=== PATIENT | male | born 1995 | race Caucasian/White ===

== ENCOUNTER 2018-01-22 17:37 | Inpatient (IN) ==
--- NOTE | 2018-01-22 17:46 | DR.ABDMALE ---
HPI Time seen Time Seen by Provider: 01/22/18 17:43 Complaint Chief Complaint Doctors Comments: Patient presents with complaint of hurting all. He denies trauma. He was seen in [place] on last night but nothing was done for him. The person accompanying him states that he has diabetes. PE Vital Signs Vital Signs: Temp Pulse Pulse Resp BP BP Pulse Ox 01/23/18 00:04 98.0 F 84 12 135/75 01/22/18 23:00 91 H 11 L 141/84 01/22/18 22:46 134/86 01/22/18 21:40 88 16 136/80 100 01/22/18 17:43 98.9 F 92 H 16 155/96 100 General Limitations: No Limitations General Appearance: Alert and In No Apparent Distress Head Head Exam: Normal Inspection and Atraumatic Eyes Eye exam: Normal Appearance, PERRL and EOMI ENT ENT Exam: Normal Exam and Normal Oropharynx Neck Neck Exam: Normal Inspection and Full ROM Chest Chest Inspection: Normal Inspection Respiratory Respiratory Exam: Normal Lung Sounds Bilat Respiratory Exam: Bilateral: Clear to Auscultation Cardiovascular Cardiovascular Exam: Regular Rate and Normal Rhythm Abdominal Exam Abdominal Exam: Normal Inspection, Normal Bowel Sounds and Soft Abdominal Tenderness: Epigastrium and Mild Back Back Exam: Normal Inspection and Full ROM Extremeties Extremities Exam: Normal Inspection Exam: Male: Deferred Neurologic Neurological Exam: Alert, Oriented X3 and CN II-XII Intact Psychiatric Psychiatric Exam: Normal Affect, Normal Mood and Depressed Skin Skin Exam: Warm and Dry COURSE Consultation Called: 20:34 Call Returned: 20:47 Consultation Comments: Dr. Ordonez agreed to admit for further evaluation and treatment ROR Labs Reviewed Laboratory Results Reviewed?: Yes Result Diagrams: 01/22/18 18:45 01/22/18 23:26 Laboratory: WBC 18.0 X10^3/uL (3.6-10.0) H 01/22/18 18:45 RBC 6.17 X10^6/uL (4.7-6.0) H 01/22/18 18:45 Hgb 17.1 g/dL (13.5-18.0) 01/22/18 18:45 Hct 52.8 % (42.0-54.0) 01/22/18 18:45 MCV 85.6 fL (80.0-100.0) 01/22/18 18:45 MCH 27.7 pg (27.0-34.0) 01/22/18 18:45 MCHC 32.4 g/dL (33.0-35.0) L 01/22/18 18:45 RDW 14.7 % (11.6-16.5) 01/22/18 18:45 Plt Count 285 X10^3/uL (150.0-450.0) 01/22/18 18:45 MPV 9.9 fL (7.4-11.0) 01/22/18 18:45 Neut % (Auto) 83.6 % (42.0-75.0) H 01/22/18 18:45 Lymph % (Auto) 11.2 % (21.0-51.0) L 01/22/18 18:45 [place] % (Auto) 4.8 % (0.0-13.0) 01/22/18 18:45 Eos % (Auto) 0.1 % (0.9-2.9) L 01/22/18 18:45 Baso % (Auto) 0.3 % (0.2-1.0) 01/22/18 18:45 Neut # (Auto) 15.1 x10^3/uL (2.2-4.8) H 01/22/18 18:45 Lymph # (Auto) 2.0 X10^3/uL (1.3-2.9) 01/22/18 18:45 [place] # (Auto) 0.9 x10^3/uL (0.3-0.8) H 01/22/18 18:45 Eos # (Auto) 0.0 x10^3/uL (0.0-0.2) 01/22/18 18:45 Baso # (Auto) 0.1 X10^3/uL (0.0-0.1) 01/22/18 18:45 Absolute Nucleated RBC 0.1 /100WBC 01/22/18 18:45 Absolute Retic 0.0800 10^6/uL 01/22/18 18:45 Percent Retic 1.30 % (0.8-2.2) 01/22/18 18:45 Sample Site Rr 01/22/18 20:05 ABG pH 7.150 (7.35-7.45) L* 01/22/18 20:05 ABG pCO2 12.0 mmHg (35.0-45.0) L* 01/22/18 20:05 ABG pO2 149.0 mmHg (80.0-100.0) H 01/22/18 20:05 ABG HCO3 4.2 mmol/L (22-26) L* 01/22/18 20:05 ABG O2 Saturation 99.0 % (90-100) 01/22/18 20:05 ABG Base Excess -22.3 mmol/L (-2.0-2.0) L 01/22/18 20:05 Murphy Test Pos 01/22/18 20:05 A-a Gradient -14.0 mmHg 01/22/18 20:05 FiO2 21.0 01/22/18 20:05 Blood Gas Comments Pt chester well js 01/22/18 20:05 Sodium 133 mmol/L (136-145) L 01/22/18 23:26 Corrected Sodium 138 mmol/L (136-145) 01/22/18 23:26 Potassium 4.1 mmol/L (3.5-5.1) 01/22/18 23:26 Chloride 101 mmol/L (98-107) 01/22/18 23:26 Carbon Dioxide 5.4 mmol/L (21-32) L* 01/22/18 23:26 BUN 20 mg/dL (7-18) H 01/22/18 23:26 Creatinine 1.26 mg/dL (0.70-1.30) 01/22/18 23:26 Est GFR (MDRD) Af Amer > 60 (>60) 01/22/18 23:26 Est GFR (MDRD) Non-Af > 60 (>60) 01/22/18 23:26 Glucose 319 mg/dL (65-99) H 01/22/18 23:26 POC Glucose (mg/dL) 247 mg/dL (65-99) H 01/23/18 01:06 Calcium 7.0 mg/dL (8.5-10.1) L 01/22/18 23:26 Corrected Calcium TNP 01/22/18 18:45 Total Bilirubin 0.50 mg/dL (0.2-1.0) 01/22/18 18:45 AST 78 Units/L (15-37) H 01/22/18 18:45 ALT 146 Units/L (12-78) H 01/22/18 18:45 Alkaline Phosphatase 78 Units/L (46-116) 01/22/18 18:45 C-Reactive Protein 3.80 mg/L (0-3.0) H 01/22/18 18:45 Total Protein 9.0 g/dL (6.4-8.2) H 01/22/18 18:45 Albumin 3.4 g/dL (3.4-5.0) 01/22/18 18:45 Globulin 5.6 g/dL (2.5-4.5) H 01/22/18 18:45 Albumin/Globulin Ratio 0.6 Ratio (1.1-2.1) L 01/22/18 18:45 Specimen Type Random urine 01/22/18 18:36 Urine Color Yellow (YELLOW) 01/22/18 18:36 Urine Appearance Slightly hazy (CLEAR) 01/22/18 18:36 Urine pH 5.0 (5.0 - 8.0) 01/22/18 18:36 Ur Specific [place] 1.025 (1.000-1.030) 01/22/18 18:36 Urine Protein 2+ (NEGATIVE) 01/22/18 18:36 Urine Glucose (UA) 4+ (NEGATIVE) 01/22/18 18:36 Urine Ketones 4+ (NEGATIVE) 01/22/18 18:36 Urine Occult Blood 2+ (NEGATIVE) 01/22/18 18:36 Urine Nitrite Negative (NEGATIVE) 01/22/18 18:36 Urine Bilirubin Negative (NEGATIVE) 01/22/18 18:36 Urine Urobilinogen Normal (NORMAL) 01/22/18 18:36 Ur Leukocyte Esterase Negative (NEGATIVE) 01/22/18 18:36 Urine RBC 0-2 /HPF (NONE SEEN) 01/22/18 18:36 Urine WBC 0-2 /HPF (NONE SEEN) 01/22/18 18:36 Ur Squamous Epith Cells Rare /HPF (NEGATIVE) 01/22/18 18:36 Urine Bacteria Trace /HPF (NEGATIVE) 01/22/18 18:36 Urine Mucus Few /HPF (NEGATIVE) 01/22/18 18:36 Ur Culture Indicated? No/not indicated 01/22/18 18:36 Urine Opiates Screen Negative (NEG=<300) 01/22/18 18:36 Urine Methadone Screen Negative (NEG=<300) 01/22/18 18:36 Ur Barbiturates Screen Negative (NEG=<200) 01/22/18 18:36 Ur Phencyclidine Scrn Negative (NEG=<25) 01/22/18 18:36 Ur Amphetamines Screen Negative (NEG=<1000) 01/22/18 18:36 U Benzodiazepines Scrn Negative (NEG=<200) 01/22/18 18:36 Urine Cocaine Screen Negative (NEG=<300) 01/22/18 18:36 U Marijuana (THC) Screen Negative (NEG=<50) 01/22/18 18:36 Acetone, Semi-Quant Small (NEGATIVE) H 01/22/18 18:45 Diagnosis Discharge Problem: Metabolic acidosis Diabetes mellitus Qualifiers: Diabetes mellitus type: type 2 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
[2018-01-22] MEDS ORDERED: NS 1000 ML 1,000 ML ONE ×2 (18:03→20:39)
[2018-01-22] MEDS ORDERED: NS 1000 ML 1,000 ML IV ONE ×2 (18:09→19:57)
--- NOTE | 2018-01-22 18:35 | RAD ---
History: Pain Exam: Acute abdominal series Comparison: None Findings: AP chest was obtained which shows no acute cardiopulmonary abnormality. Supine and upright views of the abdomen were obtained which shows a nonspecific gas pattern. No renal stones are seen. There is no free air. The bones are intact. IMPRESSION: No acute cardiopulmonary abnormality. Non-specific gas pattern. Reported By:
[2018-01-22 18:47] LABS: BILIRUBIN,URINE NEGATIVE (NEGATIVE); BLOOD/HEMOGLOBIN,URINE 2+ (NEGATIVE); GLUCOSE, URINE 4+ (NEGATIVE); KETONES,URINE 4+ (NEGATIVE); LEUKOCYTE ESTERASE ,URINE NEGATIVE (NEGATIVE); NITRITES,URINE NEGATIVE (NEGATIVE); PROTEIN,URINE 2+ (NEGATIVE); UROBILINOGEN,URINE NORMAL (NORMAL)
[2018-01-22 18:51] LABS: BASOPHILS # (AUTO) 0.1 X10^3/uL (0.0-0.1); BASOPHILS % (AUTO) 0.3 % (0.2-1.0); EOSINOPHILS % (AUTO) 0.1 % (0.9-2.9); HEMATOCRIT 52.8 % (42.0-54.0); HEMOGLOBIN 17.1 g/dL (13.5-18.0); LYMPHOCYTES % (AUTO) 11.2 % (21.0-51.0); MEAN CORPUSCULAR HEMOGLOBIN 27.7 pg (27.0-34.0); MEAN CORPUSCULAR HGB CONC 32.4 g/dL (33.0-35.0); MEAN CORPUSCULAR VOLUME 85.6 fL (80.0-100.0); MEAN PLATELET VOLUME 9.9 fL (7.4-11.0); MONOCYTES # (AUTO) 0.9 x10^3/uL (0.3-0.8); MONOCYTES % (AUTO) 4.8 % (0.0-13.0); NEUTROPHILS # (AUTO) 15.1 x10^3/uL (2.2-4.8); NEUTROPHILS % (AUTO) 83.6 % (42.0-75.0); PLATELET COUNT 285 X10^3/uL (150.0-450.0); RED BLOOD COUNT 6.17 X10^6/uL (4.7-6.0); RED CELL DISTRIBUTION WIDTH 14.7 % (11.6-16.5)
[2018-01-22 18:52] LABS: APPEARANCE,URINE SLIGHTLY HAZY (CLEAR); COLOR,URINE YELLOW (YELLOW)
[2018-01-22 19:01] LABS: ALANINE AMINOTRANSFERASE 146 Units/L (12-78); ALBUMIN 3.4 g/dL (3.4-5.0); ALKALINE PHOSPHATASE 78 Units/L (46-116); ASPARTATE AMINO TRANSFERASE 78 Units/L (15-37); BLOOD UREA NITROGEN 22 mg/dL (7-18); eGFR NON BLACK RACES > 60 (>60)
[2018-01-22 19:02] LABS: RBC,URINE 0-2 /HPF (NONE SEEN); SQUAMOUS EPITHELIAL CELL,UR RARE /HPF (NEGATIVE)
[2018-01-22 19:03] LABS: BACTERIA,URINE TRACE /HPF (NEGATIVE); MUCUS,URINE FEW /HPF (NEGATIVE)
[2018-01-22 19:23] LABS: CALCIUM 7.7 mg/dL (8.5-10.1); CHLORIDE 98 mmol/L (98-107); COR NA(FOR HYPERGLY) 137 mmol/L (136-145); CREATININE 1.44 mg/dL (0.70-1.30); SODIUM 130 mmol/L (136-145)
[2018-01-22 19:29] LABS: CARBON DIOXIDE 5.5 mmol/L (21-32)
[2018-01-22] MEDS ORDERED: SODIUM BICARBONATE 8.4% INJ ADULT IVP ONE (20:22)
[2018-01-22 20:24] LABS: ABG BASE EXCESS -22.3 mmol/L (-2.0-2.0)
[2018-01-22 20:25] LABS: ABG HCO3 4.2 mmol/L (22-26)
[2018-01-22 20:26] LABS: ABG ALLEN TEST POS
[2018-01-22] MEDS ORDERED: SODIUM BICARBONATE 8.4% INJ ADULT ONE (20:39)
[2018-01-22] MEDS: NS 1000 ML 1,000 ML IV SCH (22:51)
[2018-01-22] MEDS ORDERED: NS 100 ML IV 100 ML IV ONE (22:53)
[2018-01-22] MEDS ORDERED: HumuLIN R ONE (22:56)
[2018-01-23] LABS: BLOOD UREA NITROGEN 20 mg/dL (7-18); CHLORIDE 101 mmol/L (98-107); COR NA(FOR HYPERGLY) 138 mmol/L (136-145); CREATININE 1.26 mg/dL (0.70-1.30); SODIUM 133 mmol/L (136-145); eGFR NON BLACK RACES > 60 (>60)
[2018-01-23 00:02] LABS: CARBON DIOXIDE 5.4 mmol/L (21-32)
[2018-01-23 03:30] LABS: BASOPHILS # (AUTO) 0.1 X10^3/uL (0.0-0.1); BASOPHILS % (AUTO) 0.5 % (0.2-1.0); HEMATOCRIT 43.8 % (42.0-54.0); HEMOGLOBIN 14.5 g/dL (13.5-18.0); LYMPHOCYTES # (AUTO) 2.9 X10^3/uL (1.3-2.9); LYMPHOCYTES % (AUTO) 16.4 % (21.0-51.0); MEAN CORPUSCULAR HEMOGLOBIN 27.5 pg (27.0-34.0); MEAN CORPUSCULAR HGB CONC 33.2 g/dL (33.0-35.0); MEAN CORPUSCULAR VOLUME 82.8 fL (80.0-100.0); MEAN PLATELET VOLUME 9.7 fL (7.4-11.0); MONOCYTES % (AUTO) 5.6 % (0.0-13.0); NEUTROPHILS # (AUTO) 13.6 x10^3/uL (2.2-4.8); NEUTROPHILS % (AUTO) 77.5 % (42.0-75.0); PLATELET COUNT 267 X10^3/uL (150.0-450.0); RED BLOOD COUNT 5.28 X10^6/uL (4.7-6.0); RED CELL DISTRIBUTION WIDTH 14.3 % (11.6-16.5); WHITE BLOOD COUNT 17.5 X10^3/uL (3.6-10.0)
[2018-01-23 03:46] LABS: BLOOD UREA NITROGEN 17 mg/dL (7-18); CHLORIDE 102 mmol/L (98-107); CKMB % 3.4 % (<4); COR NA(FOR HYPERGLY) 135 mmol/L (136-145); CREATINE KINASE 44 Units/L (39-308); CREATINE KINASE MB 1.5 ng/mL (0-4.0); SODIUM 132 mmol/L (136-145); TROPONIN I < 0.02 ng/mL (0-1.5); eGFR NON BLACK RACES > 60 (>60)
[2018-01-23 04:05] LABS: CARBON DIOXIDE 8.2 mmol/L (21-32)
[2018-01-23] MEDS: NS 1000 ML 1,000 ML IV SCH ×3 (05:42→21:35)
[2018-01-23 05:50] LABS: ABG BASE EXCESS -17.2 mmol/L (-2.0-2.0)
[2018-01-23 05:55] LABS: ABG HCO3 8.6 mmol/L (22-26)
[2018-01-23 05:57] LABS: ABG ALLEN TEST POS
[2018-01-23 07:42] LABS: BLOOD UREA NITROGEN 15 mg/dL (7-18); CALCIUM 7.1 mg/dL (8.5-10.1); CHLORIDE 101 mmol/L (98-107); COR NA(FOR HYPERGLY) 134 mmol/L (136-145); CREATININE 1.12 mg/dL (0.70-1.30); SODIUM 131 mmol/L (136-145); eGFR NON BLACK RACES > 60 (>60)
[2018-01-23 07:45] LABS: CARBON DIOXIDE 12.5 mmol/L (21-32)
[2018-01-23 12:41] LABS: ABG BASE EXCESS -10.2 mmol/L (-2.0-2.0)
[2018-01-23 12:42] LABS: ABG ALLEN TEST POS; ABG HCO3 14.2 mmol/L (22-26)
--- NOTE | 2018-01-23 13:39 | DR.H&P ---
H&P - History & Physical for Day of: H&P Date: 01/22/18 - Chief Complaint Chief Complaint: ABDOMINAL PAIN - History of Present Illness History of Present Illness: 21 BM ER ADMISSION WITH ABDOMINAL PAIN AND DKA. PT STATES HE HAS BEEN SICK FOR SEVERAL WEEKS, PT IS VERY POOR HISTORIAN, NON COMPLIANT. PT STATES HE "JUST FOUND OUT" HE WAS A DIABETIC. PT REPORTS HE WAS IN [place] ER AND "THEY DIDNT DO ANYTHING". PT WBC 18, ABG PH 7.150 HCO3 4.2. PT ADMITTED TO ICU ON INSULIN DRIP. - Past Medical History Past Medical History: Diabetes - Past Surgical History Surgical History: No History - Social History Does patient currently use any type of tobacco product: Yes Have you used tobacco products in the last 12 months: Yes Type of Tobacco Use: Cigarettes How many years tobacco product used: 5 Does any household member use tobacco: Yes Alcohol Use: None Drug Use: None - Medications Home Medications: No Known Drug Allergies Allergy (Verified 01/22/18 18:02) - Review of Systems Constitutional: Weakness Eyes: No Symptoms Reported ENT: No Symptoms Reported Respiratory: No Symptoms Reported Cardiovascular: No Symptoms Reported Gastrointestinal: Nausea, Vomiting, Abdominal Pain Musculoskeletal: No Symptoms Reported Skin: No Symptoms Reported Neurological: Weakness - Physical Exam Vital Signs: Temperature 98.9 F Pulse Rate [Right Brachial] 89 Pulse Rate 92 Respiratory Rate 15 Blood Pressure [Left Arm] 121/55 Blood Pressure 155/96 O2 Sat by Pulse Oximetry 100 Oriented: Normal Eyes: Normal Ear: Normal Nose: Normal Throat: Normal Respiratory: RLL Diminished, LLL Diminished Cardiovascular: Normal : Normal Auscultation: Bowel Sounds: Increased Tenderness: LUQ, Epigastric Skin: Normal Musculoskeletal: Normal Mood Description: Anxious Affect: Anxious Speech Pattern: Clear, Appropriate - Assessment/Plan (1) Abdominal pain Status: Acute Plan: ADMIT, ICU INSULIN DRIP. IV HYDRATION, STRICT I & OS. NPO, PAIN AND NAUSEA CONTROL. ABD SERIES ON ADMISSION. PPI THERAPY, BS PER INSULIN PROTOCOL, SUPPLEMENTAL O2. REPEAT AM ABG. (2) Diabetes mellitus Qualifiers: Diabetes mellitus type: type 1 Diabetes mellitus complication status: with hyperglycemia Qualified Code(s): E10.65 - Type 1 diabetes mellitus with hyperglycemia Status: Acute (3) Metabolic acidosis Status: Acute - Allergies Allergies/Adverse Reactions: Allergies Allergy/AdvReac Type Severity Reaction Status Date / Time No Known Drug Allergies Allergy Verified 01/22/18 18:02
[2018-01-23] MEDS ORDERED: ZOFRAN INJ 4 MG VIAL IVP ONE (13:43)
[2018-01-23] MEDS: LEVAQUIN PREMIX IV 500 MG 500 MG/100 ML BAG IV SCH (14:03)
[2018-01-23] MEDS: PROTONIX INJ 40 MG VIAL IVP SCH ×2 (14:05→21:35)
[2018-01-23] MEDS ORDERED: XANAX PO ONE (16:04)
[2018-01-24] MEDS: NS 1000 ML 1,000 ML IV SCH ×3 (05:43→22:29)
[2018-01-24 05:52] LABS: ABG BASE EXCESS -4.8 mmol/L (-2.0-2.0); ABG HCO3 19.5 mmol/L (22-26)
[2018-01-24 06:37] LABS: BASOPHILS % (AUTO) 0.1 % (0.2-1.0); EOSINOPHILS # (AUTO) 0.1 x10^3/uL (0.0-0.2); EOSINOPHILS % (AUTO) 0.9 % (0.9-2.9); HEMATOCRIT 35.7 % (42.0-54.0); HEMOGLOBIN 12.2 g/dL (13.5-18.0); LYMPHOCYTES % (AUTO) 19.5 % (21.0-51.0); MEAN CORPUSCULAR HEMOGLOBIN 27.7 pg (27.0-34.0); MEAN CORPUSCULAR HGB CONC 34.1 g/dL (33.0-35.0); MEAN CORPUSCULAR VOLUME 81.4 fL (80.0-100.0); MEAN PLATELET VOLUME 9.9 fL (7.4-11.0); MONOCYTES # (AUTO) 0.8 x10^3/uL (0.3-0.8); MONOCYTES % (AUTO) 7.6 % (0.0-13.0); NEUTROPHILS # (AUTO) 7.2 x10^3/uL (2.2-4.8); NEUTROPHILS % (AUTO) 71.9 % (42.0-75.0); PLATELET COUNT 185 X10^3/uL (150.0-450.0); RED BLOOD COUNT 4.39 X10^6/uL (4.7-6.0); RED CELL DISTRIBUTION WIDTH 13.6 % (11.6-16.5)
[2018-01-24 06:59] LABS: ALANINE AMINOTRANSFERASE 88 Units/L (12-78); ALBUMIN 2.4 g/dL (3.4-5.0); ALKALINE PHOSPHATASE 44 Units/L (46-116); ASPARTATE AMINO TRANSFERASE 69 Units/L (15-37); BLOOD UREA NITROGEN 7 mg/dL (7-18); CALCIUM 6.9 mg/dL (8.5-10.1); CARBON DIOXIDE 19.5 mmol/L (21-32); CHLORIDE 106 mmol/L (98-107); COR CA(FOR HYPOALB) 8.2 mg/dL (8.5-10.1); COR NA(FOR HYPERGLY) 138 mmol/L (136-145); CREATININE 0.78 mg/dL (0.70-1.30); SODIUM 137 mmol/L (136-145); TOTAL PROTEIN 5.8 g/dL (6.4-8.2); eGFR NON BLACK RACES > 60 (>60)
[2018-01-24] MEDS: LEVAQUIN PREMIX IV 500 MG 500 MG/100 ML BAG IV SCH (09:20)
[2018-01-24] MEDS: PROTONIX INJ 40 MG VIAL IVP SCH ×2 (09:20→21:14)
[2018-01-24] MEDS: PHENERGAN INJ 25 MG IVP PRN ×2 (10:29→16:30)
--- NOTE | 2018-01-24 15:57 | PCM.PROG ---
Progress Note - Progress Note for Day of Date of Exam: 01/24/18 - Subjective Subjective: 21 BM ER ADMISSION ON 01/22 WITH DKA, UPPER ABDOMINAL PAIN. PT STARTED ON INSULIN DRIP ON ADMISSION WITH IMPROVING BS, PT CONTINUES WITH SMALL ACETONE THIS AM. PT VERY RUDE AND BELIGERATE TO NURSING STAFF, REFUSING BLOOD SUGARS AND LAB COLLECTION. ABG PH 7.38, CO2 33, HCO3 19.5 PT ASKING TO ADVANCE DIET. CONTINUE WITH INSULIN DRIP. WBC 10, ON IV LEVAQUIN, LACTIC ACID NORMAL, PT DEINES ABDOMINAL PAIN THIS AM. REPEAT ABG, BS AND CARDIAC MONITORING WITH SUPPLEMENTAL O2. CE NEGATIVE, MONITOR I&OS, PPI THERAPY AND PAIN AND NAUSEA CONTROL - Past Medical Family Social History Past Med/Fam/Surg Hx: No changes since H&P Allergies: Allergies No Known Drug Allergies Allergy (Verified 01/22/18 18:02) - Review of Systems ROS: No change since H&P - Vital Signs and I&O's Vital Signs: Temperature 98.2 F Pulse Rate [Right Brachial] 83 Pulse Rate 92 Respiratory Rate 18 Blood Pressure [Left Arm] 123/58 Blood Pressure 155/96 O2 Sat by Pulse Oximetry 100 Intake and Output: Intake & Output 01/22/18 01/23/18 01/24/18 01/25/18 11:59 11:59 11:59 11:59 Intake Total 2992 / 2992 9758 / 9758 Output Total 1500 / 1500 6750 / 6750 Balance 1492 / 1492 3008 / 3008 - Physical Exam Oriented: Normal Eyes: Normal Ear: Normal Nose: Normal Throat: Normal Respiratory: Normal Cardiovascular: Normal : Normal Auscultation: Bowel Sounds: Increased Tenderness: LUQ, Epigastric, Mild Skin: Normal Musculoskeletal: Normal Mood Description: Anxious Affect: Anxious Speech Pattern: Clear, Appropriate - Laboratory and Diagnostics Result Diagrams: 01/24/18 05:35 01/24/18 05:35 Labs: Laboratory WBC 10.0 X10^3/uL (3.6-10.0) 01/24/18 05:35 RBC 4.39 X10^6/uL (4.7-6.0) L 01/24/18 05:35 Hgb 12.2 g/dL (13.5-18.0) L D 01/24/18 05:35 Hct 35.7 % (42.0-54.0) L 01/24/18 05:35 MCV 81.4 fL (80.0-100.0) 01/24/18 05:35 MCH 27.7 pg (27.0-34.0) 01/24/18 05:35 MCHC 34.1 g/dL (33.0-35.0) 01/24/18 05:35 RDW 13.6 % (11.6-16.5) 01/24/18 05:35 Plt Count 185 X10^3/uL (150.0-450.0) 01/24/18 05:35 MPV 9.9 fL (7.4-11.0) 01/24/18 05:35 Neut % (Auto) 71.9 % (42.0-75.0) 01/24/18 05:35 Lymph % (Auto) 19.5 % (21.0-51.0) L 01/24/18 05:35 [place] % (Auto) 7.6 % (0.0-13.0) 01/24/18 05:35 Eos % (Auto) 0.9 % (0.9-2.9) 01/24/18 05:35 Baso % (Auto) 0.1 % (0.2-1.0) L 01/24/18 05:35 Neut # (Auto) 7.2 x10^3/uL (2.2-4.8) H 01/24/18 05:35 Lymph # (Auto) 2.0 X10^3/uL (1.3-2.9) 01/24/18 05:35 [place] # (Auto) 0.8 x10^3/uL (0.3-0.8) 01/24/18 05:35 Eos # (Auto) 0.1 x10^3/uL (0.0-0.2) 01/24/18 05:35 Baso # (Auto) 0.0 X10^3/uL (0.0-0.1) 01/24/18 05:35 Absolute Nucleated RBC 0.0 /100WBC 01/24/18 05:35 Absolute Retic 0.0800 10^6/uL 01/22/18 18:45 Percent Retic 1.30 % (0.8-2.2) 01/22/18 18:45 Sample Site Rbra 01/24/18 05:41 ABG pH 7.380 (7.35-7.45) 01/24/18 05:41 ABG pCO2 33.0 mmHg (35.0-45.0) L 01/24/18 05:41 ABG pO2 108.0 mmHg (80.0-100.0) H 01/24/18 05:41 ABG HCO3 19.5 mmol/L (22-26) L 01/24/18 05:41 ABG O2 Saturation 98.0 % (90-100) 01/24/18 05:41 ABG Base Excess -4.8 mmol/L (-2.0-2.0) L 01/24/18 05:41 Murphy Test Na 01/24/18 05:41 A-a Gradient 0.0 mmHg 01/24/18 05:41 FiO2 21.0 01/24/18 05:41 Blood Gas Comments Sree abg well-mtf 01/24/18 05:41 Sodium 137 mmol/L (136-145) 01/24/18 05:35 Corrected Sodium 138 mmol/L (136-145) 01/24/18 05:35 Potassium 3.1 mmol/L (3.5-5.1) L 01/24/18 05:35 Chloride 106 mmol/L (98-107) 01/24/18 05:35 Carbon Dioxide 19.5 mmol/L (21-32) L 01/24/18 05:35 BUN 7 mg/dL (7-18) 01/24/18 05:35 Creatinine 0.78 mg/dL (0.70-1.30) 01/24/18 05:35 Est GFR (MDRD) Af Amer > 60 (>60) 01/24/18 05:35 Est GFR (MDRD) Non-Af > 60 (>60) 01/24/18 05:35 Glucose 135 mg/dL (65-99) H 01/24/18 05:35 POC Glucose (mg/dL) 173 mg/dL (65-99) H 01/24/18 14:38 Lactic Acid 0.6 mmol/L (0.4-2.0) 01/23/18 13:59 Calcium 6.9 mg/dL (8.5-10.1) L 01/24/18 05:35 Corrected Calcium 8.2 mg/dL (8.5-10.1) L 01/24/18 05:35 Total Bilirubin 0.60 mg/dL (0.2-1.0) 01/24/18 05:35 AST 69 Units/L (15-37) H 01/24/18 05:35 ALT 88 Units/L (12-78) H 01/24/18 05:35 Alkaline Phosphatase 44 Units/L (46-116) L 01/24/18 05:35 Creatine Kinase 44 Units/L (39-308) 01/23/18 03:02 CK-MB (CK-2) 1.5 ng/mL (0-4.0) 01/23/18 03:02 CK/CKMB % Calc 3.4 % (<4) 01/23/18 03:02 Troponin I < 0.02 ng/mL (0-1.5) 01/23/18 03:02 C-Reactive Protein 3.80 mg/L (0-3.0) H 01/22/18 18:45 Total Protein 5.8 g/dL (6.4-8.2) L 01/24/18 05:35 Albumin 2.4 g/dL (3.4-5.0) L 01/24/18 05:35 Globulin 3.4 g/dL (2.5-4.5) 01/24/18 05:35 Albumin/Globulin Ratio 0.7 Ratio (1.1-2.1) L 01/24/18 05:35 Specimen Type Random urine 01/22/18 18:36 Urine Color Yellow (YELLOW) 01/22/18 18:36 Urine Appearance Slightly hazy (CLEAR) 01/22/18 18:36 Urine pH 5.0 (5.0 - 8.0) 01/22/18 18:36 Ur Specific [place] 1.025 (1.000-1.030) 01/22/18 18:36 Urine Protein 2+ (NEGATIVE) 01/22/18 18:36 Urine Glucose (UA) 4+ (NEGATIVE) 01/22/18 18:36 Urine Ketones 4+ (NEGATIVE) 01/22/18 18:36 Urine Occult Blood 2+ (NEGATIVE) 01/22/18 18:36 Urine Nitrite Negative (NEGATIVE) 01/22/18 18:36 Urine Bilirubin Negative (NEGATIVE) 01/22/18 18:36 Urine Acetone Moderate (NEGATIVE) 01/24/18 08:02 Urine Urobilinogen Normal (NORMAL) 01/22/18 18:36 Ur Leukocyte Esterase Negative (NEGATIVE) 01/22/18 18:36 Urine RBC 0-2 /HPF (NONE SEEN) 01/22/18 18:36 Urine WBC 0-2 /HPF (NONE SEEN) 01/22/18 18:36 Ur Squamous Epith Cells Rare /HPF (NEGATIVE) 01/22/18 18:36 Urine Bacteria Trace /HPF (NEGATIVE) 01/22/18 18:36 Urine Mucus Few /HPF (NEGATIVE) 01/22/18 18:36 Ur Culture Indicated? No/not indicated 01/22/18 18:36 Urine Opiates Screen Negative (NEG=<300) 01/22/18 18:36 Urine Methadone Screen Negative (NEG=<300) 01/22/18 18:36 Ur Barbiturates Screen Negative (NEG=<200) 01/22/18 18:36 Ur Phencyclidine Scrn Negative (NEG=<25) 01/22/18 18:36 Ur Amphetamines Screen Negative (NEG=<1000) 01/22/18 18:36 U Benzodiazepines Scrn Negative (NEG=<200) 01/22/18 18:36 Urine Cocaine Screen Negative (NEG=<300) 01/22/18 18:36 U Marijuana (THC) Screen Negative (NEG=<50) 01/22/18 18:36 Acetone, Semi-Quant Small (NEGATIVE) H 01/23/18 03:02 - Plan (1) DKA (diabetic ketoacidoses) Status: Acute Plan: INSULIN DRIP PER PROTOCOL, REPEAT ABG, AM ACETONE. GENTLE IV HYDRATION, I&OS, SUPPLEMENTAL O2. LACTIC ACID LEVEL, IV LEVAQUIN, ORAL HYDRATION. PAIN AND NAUSEA CONTROL PRN, PPI THERAPY (2) Abdominal pain Status: Acute Plan: ICU INSULIN DRIP. IV HYDRATION, STRICT I & OS. NPO, PAIN AND NAUSEA CONTROL. ABD SERIES ON ADMISSION. PPI THERAPY, BS PER INSULIN PROTOCOL, SUPPLEMENTAL O2. REPEAT AM ABG. (3) Diabetes mellitus Status: Acute Qualifiers: Diabetes mellitus type: type 1 Diabetes mellitus complication status: with hyperglycemia Qualified Code(s): E10.65 - Type 1 diabetes mellitus with hyperglycemia (4) DKA, type 1 Status: Acute
[2018-01-24 16:08] LABS: ABG BASE EXCESS -0.6 mmol/L (-2.0-2.0); ABG HCO3 23.1 mmol/L (22-26)
[2018-01-24 16:09] LABS: ABG ALLEN TEST POS
[2018-01-24] MEDS ORDERED: XANAX PO ONE (16:10)
[2018-01-25] MEDS: HumuLIN R SC PRN ×5 (02:20→22:21)
[2018-01-25] MEDS: NS 1000 ML 1,000 ML IV SCH ×3 (05:58→21:15)
[2018-01-25 06:18] LABS: BASOPHILS # (AUTO) 0.1 X10^3/uL (0.0-0.1); BASOPHILS % (AUTO) 0.8 % (0.2-1.0); EOSINOPHILS # (AUTO) 0.2 x10^3/uL (0.0-0.2); EOSINOPHILS % (AUTO) 1.9 % (0.9-2.9); HEMATOCRIT 35.6 % (42.0-54.0); HEMOGLOBIN 12.2 g/dL (13.5-18.0); LYMPHOCYTES # (AUTO) 2.3 X10^3/uL (1.3-2.9); LYMPHOCYTES % (AUTO) 28.8 % (21.0-51.0); MEAN CORPUSCULAR HEMOGLOBIN 27.7 pg (27.0-34.0); MEAN CORPUSCULAR HGB CONC 34.4 g/dL (33.0-35.0); MEAN CORPUSCULAR VOLUME 80.4 fL (80.0-100.0); MEAN PLATELET VOLUME 9.4 fL (7.4-11.0); MONOCYTES # (AUTO) 0.8 x10^3/uL (0.3-0.8); MONOCYTES % (AUTO) 9.7 % (0.0-13.0); NEUTROPHILS # (AUTO) 4.7 x10^3/uL (2.2-4.8); NEUTROPHILS % (AUTO) 58.8 % (42.0-75.0); PLATELET COUNT 167 X10^3/uL (150.0-450.0); RED BLOOD COUNT 4.43 X10^6/uL (4.7-6.0); RED CELL DISTRIBUTION WIDTH 13.7 % (11.6-16.5); WHITE BLOOD COUNT 8.1 X10^3/uL (3.6-10.0)
[2018-01-25 06:22] LABS: ALANINE AMINOTRANSFERASE 79 Units/L (12-78); ALBUMIN 2.3 g/dL (3.4-5.0); ALKALINE PHOSPHATASE 42 Units/L (46-116); ASPARTATE AMINO TRANSFERASE 68 Units/L (15-37); BLOOD UREA NITROGEN 6 mg/dL (7-18); CHLORIDE 109 mmol/L (98-107); COR CA(FOR HYPOALB) 8.4 mg/dL (8.5-10.1); COR NA(FOR HYPERGLY) 143 mmol/L (136-145); CREATININE 0.59 mg/dL (0.70-1.30); SODIUM 141 mmol/L (136-145); TOTAL PROTEIN 5.7 g/dL (6.4-8.2); eGFR NON BLACK RACES > 60 (>60)
[2018-01-25] MEDS ORDERED: KLOR-CON PO PRN (06:34)
[2018-01-25] MEDS ORDERED: POTASSIUM CHL 60 MEQ/NS 0.45% 500 ML IV PRN (06:34)
[2018-01-25] MEDS ORDERED: K-DUR TAB 20 MEQ PO PRN (06:34)
[2018-01-25] MEDS ORDERED: MICRO K EXTEN CAP 10 MEQ PO PRN (06:34)
[2018-01-25] MEDS ORDERED: POTASSIUM CHLORIDE LIQ 20 MEQ UDC PO PRN (06:34)
[2018-01-25] MEDS ORDERED: POTASSIUM CHL 40 MEQ/NS 0.45% 500 ML IV PRN (06:34)
[2018-01-25] MEDS ORDERED: K-RIDER 10 MEQ/NS 100 ML 10 MEQ/100 ML BAG IV ONE (06:45)
[2018-01-25] MEDS: K-RIDER 10 MEQ/NS 100 ML 10 MEQ/100 ML BAG IV PRN ×2 (06:50→08:15)
[2018-01-25] MEDS: PROTONIX INJ 40 MG VIAL IVP SCH ×2 (09:54→21:14)
[2018-01-25] MEDS: LEVAQUIN PREMIX IV 500 MG 500 MG/100 ML BAG IV SCH (09:54)
[2018-01-25] MEDS: MAGNESIUM SULFATE 1 GRAM/100 mL PREMIX 1 GM/100 ML BAG IV PRN ×2 (21:13→22:23)
[2018-01-26] MEDS: HumuLIN R SC PRN ×5 (02:25→23:23)
[2018-01-26] MEDS: NS 1000 ML 1,000 ML IV SCH ×2 (06:14→16:37)
[2018-01-26 06:47] LABS: BASOPHILS # (AUTO) 0.1 X10^3/uL (0.0-0.1); BASOPHILS % (AUTO) 0.7 % (0.2-1.0); EOSINOPHILS # (AUTO) 0.2 x10^3/uL (0.0-0.2); EOSINOPHILS % (AUTO) 2.3 % (0.9-2.9); HEMATOCRIT 33.3 % (42.0-54.0); HEMOGLOBIN 11.4 g/dL (13.5-18.0); LYMPHOCYTES # (AUTO) 2.9 X10^3/uL (1.3-2.9); LYMPHOCYTES % (AUTO) 36.4 % (21.0-51.0); MEAN CORPUSCULAR HEMOGLOBIN 27.8 pg (27.0-34.0); MEAN CORPUSCULAR HGB CONC 34.3 g/dL (33.0-35.0); MEAN PLATELET VOLUME 9.9 fL (7.4-11.0); MONOCYTES # (AUTO) 0.6 x10^3/uL (0.3-0.8); MONOCYTES % (AUTO) 7.5 % (0.0-13.0); NEUTROPHILS # (AUTO) 4.3 x10^3/uL (2.2-4.8); NEUTROPHILS % (AUTO) 53.1 % (42.0-75.0); PLATELET COUNT 160 X10^3/uL (150.0-450.0); RED BLOOD COUNT 4.11 X10^6/uL (4.7-6.0); RED CELL DISTRIBUTION WIDTH 13.6 % (11.6-16.5)
[2018-01-26 07:07] LABS: ALANINE AMINOTRANSFERASE 82 Units/L (12-78); ALBUMIN 2.1 g/dL (3.4-5.0); ALKALINE PHOSPHATASE 44 Units/L (46-116); ASPARTATE AMINO TRANSFERASE 75 Units/L (15-37); BLOOD UREA NITROGEN 6 mg/dL (7-18); CALCIUM 7.1 mg/dL (8.5-10.1); CHLORIDE 109 mmol/L (98-107); COR CA(FOR HYPOALB) 8.6 mg/dL (8.5-10.1); COR NA(FOR HYPERGLY) 146 mmol/L (136-145); MAGNESIUM 1.9 mg/dL (1.7-2.9); SODIUM 142 mmol/L (136-145); TOTAL PROTEIN 5.5 g/dL (6.4-8.2); eGFR NON BLACK RACES > 60 (>60)
[2018-01-26] MEDS: K-RIDER 10 MEQ/NS 100 ML 10 MEQ/100 ML BAG IV PRN ×6 (07:18→12:21)
[2018-01-26] MEDS: PROTONIX INJ 40 MG VIAL IVP SCH ×2 (10:12→21:00)
[2018-01-26] MEDS: LEVAQUIN PREMIX IV 500 MG 500 MG/100 ML BAG IV SCH (10:12)
[2018-01-26] MEDS: MAGNESIUM SULFATE 1 GRAM/100 mL PREMIX 1 GM/100 ML BAG IV PRN ×2 (16:37→17:32)
[2018-01-27] MEDS: NS 1000 ML 1,000 ML IV SCH ×5 (02:57→22:00)
[2018-01-27 05:56] LABS: BASOPHILS # (AUTO) 0.1 X10^3/uL (0.0-0.1); BASOPHILS % (AUTO) 0.8 % (0.2-1.0); EOSINOPHILS # (AUTO) 0.3 x10^3/uL (0.0-0.2); EOSINOPHILS % (AUTO) 2.2 % (0.9-2.9); HEMATOCRIT 34.5 % (42.0-54.0); HEMOGLOBIN 11.9 g/dL (13.5-18.0); LYMPHOCYTES # (AUTO) 2.9 X10^3/uL (1.3-2.9); LYMPHOCYTES % (AUTO) 22.9 % (21.0-51.0); MEAN CORPUSCULAR HEMOGLOBIN 27.3 pg (27.0-34.0); MEAN CORPUSCULAR HGB CONC 34.4 g/dL (33.0-35.0); MEAN CORPUSCULAR VOLUME 79.4 fL (80.0-100.0); MEAN PLATELET VOLUME 10.1 fL (7.4-11.0); MONOCYTES % (AUTO) 7.6 % (0.0-13.0); NEUTROPHILS # (AUTO) 8.4 x10^3/uL (2.2-4.8); NEUTROPHILS % (AUTO) 66.5 % (42.0-75.0); PLATELET COUNT 182 X10^3/uL (150.0-450.0); RED BLOOD COUNT 4.35 X10^6/uL (4.7-6.0); RED CELL DISTRIBUTION WIDTH 13.6 % (11.6-16.5); WHITE BLOOD COUNT 12.6 X10^3/uL (3.6-10.0)
[2018-01-27 06:09] LABS: BLOOD UREA NITROGEN 8 mg/dL (7-18); CALCIUM 7.5 mg/dL (8.5-10.1); CARBON DIOXIDE 28.8 mmol/L (21-32); CHLORIDE 106 mmol/L (98-107); COR NA(FOR HYPERGLY) 142 mmol/L (136-145); CREATININE 0.58 mg/dL (0.70-1.30); MAGNESIUM 1.7 mg/dL (1.7-2.9); SODIUM 142 mmol/L (136-145); eGFR NON BLACK RACES > 60 (>60)
[2018-01-27] MEDS: HumuLIN R SC PRN ×4 (09:25→20:04)
[2018-01-27] MEDS: LEVAQUIN PREMIX IV 500 MG 500 MG/100 ML BAG IV SCH (09:34)
[2018-01-27] MEDS: PROTONIX INJ 40 MG VIAL IVP SCH ×2 (09:34→20:04)
[2018-01-27] MEDS: MAGNESIUM SULFATE 1 GRAM/100 mL PREMIX 1 GM/100 ML BAG IV PRN ×2 (09:35→12:15)
--- NOTE | 2018-01-27 14:09 | PCM.PROG ---
Progress Note - Progress Note for Day of Date of Exam: 01/25/18 - Subjective Subjective: 21 BM ER ADMISSION ON 01/22 WITH DKA, UPPER ABDOMINAL PAIN. PT DEINES ABDOMINAL PAIN THIS AM. INSULIN DRIP D/C'D DUE TO IMPROVEMENT, WBC 8.1, POTASSIUM 3.0 WITH POTASSIUM REPLACEMENT, CO2 21.0. PT MORE AWAKE AND ACTIVE, STATES HE IS VERY HUNGRY. BS AND CARDIAC MONITORING WITH SUPPLEMENTAL O2. CE NEGATIVE, MONITOR I&OS, PPI THERAPY AND PAIN AND NAUSEA CONTROL - Past Medical Family Social History Past Med/Fam/Surg Hx: No changes since H&P Allergies: Allergies No Known Drug Allergies Allergy (Verified 01/22/18 18:02) - Review of Systems ROS: No change since H&P - Vital Signs and I&O's Vital Signs: Temperature 99.1 F Pulse Rate [Right Brachial] 74 Pulse Rate 92 Respiratory Rate 20 Blood Pressure [Left Arm] 135/67 Blood Pressure 155/96 O2 Sat by Pulse Oximetry 98 Intake and Output: Intake & Output 01/25/18 01/26/18 01/27/18 01/28/18 11:59 11:59 11:59 11:59 Intake Total 87000 / 35940 8247 / 8247 8523 / 8523 Output Total 7250 / 7250 6500 / 6500 4875 / 4875 Balance 4686 / 4686 1747 / 1747 3648 / 3648 - Physical Exam Oriented: Normal Eyes: Normal Ear: Normal Nose: Normal Throat: Normal Respiratory: Normal Cardiovascular: Normal : Normal Auscultation: Bowel Sounds: Increased Tenderness: LUQ, Epigastric, Mild Skin: Normal Musculoskeletal: Normal Mood Description: Anxious Affect: Anxious Speech Pattern: Clear, Appropriate - Laboratory and Diagnostics Result Diagrams: 01/27/18 05:16 01/27/18 05:16 Labs: 01/23/18 14:05 Blood Blood Culture - Preliminary 01/23/18 13:59 Blood Blood Culture - Preliminary Laboratory WBC 12.6 X10^3/uL (3.6-10.0) H 01/27/18 05:16 RBC 4.35 X10^6/uL (4.7-6.0) L 01/27/18 05:16 Hgb 11.9 g/dL (13.5-18.0) L 01/27/18 05:16 Hct 34.5 % (42.0-54.0) L 01/27/18 05:16 MCV 79.4 fL (80.0-100.0) L 01/27/18 05:16 MCH 27.3 pg (27.0-34.0) 01/27/18 05:16 MCHC 34.4 g/dL (33.0-35.0) 01/27/18 05:16 RDW 13.6 % (11.6-16.5) 01/27/18 05:16 Plt Count 182 X10^3/uL (150.0-450.0) 01/27/18 05:16 MPV 10.1 fL (7.4-11.0) 01/27/18 05:16 Neut % (Auto) 66.5 % (42.0-75.0) 01/27/18 05:16 Lymph % (Auto) 22.9 % (21.0-51.0) 01/27/18 05:16 [place] % (Auto) 7.6 % (0.0-13.0) 01/27/18 05:16 Eos % (Auto) 2.2 % (0.9-2.9) 01/27/18 05:16 Baso % (Auto) 0.8 % (0.2-1.0) 01/27/18 05:16 Neut # (Auto) 8.4 x10^3/uL (2.2-4.8) H 01/27/18 05:16 Lymph # (Auto) 2.9 X10^3/uL (1.3-2.9) 01/27/18 05:16 [place] # (Auto) 1.0 x10^3/uL (0.3-0.8) H 01/27/18 05:16 Eos # (Auto) 0.3 x10^3/uL (0.0-0.2) H 01/27/18 05:16 Baso # (Auto) 0.1 X10^3/uL (0.0-0.1) 01/27/18 05:16 Absolute Nucleated RBC 0.1 /100WBC 01/27/18 05:16 Absolute Retic 0.0800 10^6/uL 01/22/18 18:45 Percent Retic 1.30 % (0.8-2.2) 01/22/18 18:45 Sample Site Rr 01/24/18 15:53 ABG pH 7.440 (7.35-7.45) 01/24/18 15:53 ABG pCO2 34.0 mmHg (35.0-45.0) L 01/24/18 15:53 ABG pO2 111.0 mmHg (80.0-100.0) H 01/24/18 15:53 ABG HCO3 23.1 mmol/L (22-26) 01/24/18 15:53 ABG O2 Saturation 99.0 % (90-100) 01/24/18 15:53 ABG Base Excess -0.6 mmol/L (-2.0-2.0) 01/24/18 15:53 Murphy Test Pos 01/24/18 15:53 A-a Gradient -4.0 mmHg 01/24/18 15:53 FiO2 21.0 01/24/18 15:53 Blood Gas Comments Pt chester well elj 01/24/18 15:53 Sodium 142 mmol/L (136-145) 01/27/18 05:16 Corrected Sodium 142 mmol/L (136-145) 01/27/18 05:16 Potassium 2.9 mmol/L (3.5-5.1) L* 01/27/18 05:16 Chloride 106 mmol/L (98-107) 01/27/18 05:16 Carbon Dioxide 28.8 mmol/L (21-32) 01/27/18 05:16 BUN 8 mg/dL (7-18) 01/27/18 05:16 Creatinine 0.58 mg/dL (0.70-1.30) L 01/27/18 05:16 Est GFR (MDRD) Af Amer > 60 (>60) 01/27/18 05:16 Est GFR (MDRD) Non-Af > 60 (>60) 01/27/18 05:16 Glucose 116 mg/dL (65-99) H 01/27/18 05:16 POC Glucose (mg/dL) 299 mg/dL (65-99) H 01/27/18 13:26 Lactic Acid 0.6 mmol/L (0.4-2.0) 01/23/18 13:59 Calcium 7.5 mg/dL (8.5-10.1) L 01/27/18 05:16 Corrected Calcium 8.6 mg/dL (8.5-10.1) 01/26/18 06:03 Magnesium 1.7 mg/dL (1.7-2.9) 01/27/18 05:16 Total Bilirubin 0.10 mg/dL (0.2-1.0) L 01/26/18 06:03 AST 75 Units/L (15-37) H 01/26/18 06:03 ALT 82 Units/L (12-78) H 01/26/18 06:03 Alkaline Phosphatase 44 Units/L (46-116) L 01/26/18 06:03 Creatine Kinase 44 Units/L (39-308) 01/23/18 03:02 CK-MB (CK-2) 1.5 ng/mL (0-4.0) 01/23/18 03:02 CK/CKMB % Calc 3.4 % (<4) 01/23/18 03:02 Troponin I < 0.02 ng/mL (0-1.5) 01/23/18 03:02 C-Reactive Protein 3.80 mg/L (0-3.0) H 01/22/18 18:45 Total Protein 5.5 g/dL (6.4-8.2) L 01/26/18 06:03 Albumin 2.1 g/dL (3.4-5.0) L 01/26/18 06:03 Globulin 3.4 g/dL (2.5-4.5) 01/26/18 06:03 Albumin/Globulin Ratio 0.6 Ratio (1.1-2.1) L 01/26/18 06:03 Specimen Type Random urine 01/22/18 18:36 Urine Color Yellow (YELLOW) 01/22/18 18:36 Urine Appearance Slightly hazy (CLEAR) 01/22/18 18:36 Urine pH 5.0 (5.0 - 8.0) 01/22/18 18:36 Ur Specific Lynn 1.025 (1.000-1.030) 01/22/18 18:36 Urine Protein 2+ (NEGATIVE) 01/22/18 18:36 Urine Glucose (UA) 4+ (NEGATIVE) 01/22/18 18:36 Urine Ketones 4+ (NEGATIVE) 01/22/18 18:36 Urine Occult Blood 2+ (NEGATIVE) 01/22/18 18:36 Urine Nitrite Negative (NEGATIVE) 01/22/18 18:36 Urine Bilirubin Negative (NEGATIVE) 01/22/18 18:36 Urine Acetone Moderate (NEGATIVE) 01/24/18 08:02 Urine Urobilinogen Normal (NORMAL) 01/22/18 18:36 Ur Leukocyte Esterase Negative (NEGATIVE) 01/22/18 18:36 Urine RBC 0-2 /HPF (NONE SEEN) 01/22/18 18:36 Urine WBC 0-2 /HPF (NONE SEEN) 01/22/18 18:36 Ur Squamous Epith Cells Rare /HPF (NEGATIVE) 01/22/18 18:36 Urine Bacteria Trace /HPF (NEGATIVE) 01/22/18 18:36 Urine Mucus Few /HPF (NEGATIVE) 01/22/18 18:36 Ur Culture Indicated? No/not indicated 01/22/18 18:36 Urine Opiates Screen Negative (NEG=<300) 01/22/18 18:36 Urine Methadone Screen Negative (NEG=<300) 01/22/18 18:36 Ur Barbiturates Screen Negative (NEG=<200) 01/22/18 18:36 Ur Phencyclidine Scrn Negative (NEG=<25) 01/22/18 18:36 Ur Amphetamines Screen Negative (NEG=<1000) 01/22/18 18:36 U Benzodiazepines Scrn Negative (NEG=<200) 01/22/18 18:36 Urine Cocaine Screen Negative (NEG=<300) 01/22/18 18:36 U Marijuana (THC) Screen Negative (NEG=<50) 01/22/18 18:36 Acetone, Semi-Quant Small (NEGATIVE) H 01/25/18 05:51 - Plan (1) DKA (diabetic ketoacidoses) Status: Acute Plan: INSULIN DRIP PER PROTOCOL, REPEAT ABG, AM ACETONE. GENTLE IV HYDRATION, I&OS, SUPPLEMENTAL O2. LACTIC ACID LEVEL, IV LEVAQUIN, ORAL HYDRATION. PAIN AND NAUSEA CONTROL PRN, PPI THERAPY (2) Abdominal pain Status: Acute Plan: ICU INSULIN DRIP D/C'D. IV HYDRATION, STRICT I & OS. NPO, PAIN AND NAUSEA CONTROL. PPI THERAPY, BS PER INSULIN PROTOCOL, SUPPLEMENTAL O2. REPEAT AM LABS (3) Diabetes mellitus Status: Acute Qualifiers: Diabetes mellitus type: type 1 Diabetes mellitus complication status: with hyperglycemia Qualified Code(s): E10.65 - Type 1 diabetes mellitus with hyperglycemia (4) DKA, type 1 Status: Acute (5) Hypokalemia Status: Acute Plan: POTASSIUM REPLACEMENT PER PROTOCOL.
[2018-01-27 14:10] LABS: BLOOD UREA NITROGEN 12 mg/dL (7-18); CALCIUM 7.4 mg/dL (8.5-10.1); CHLORIDE 104 mmol/L (98-107); COR NA(FOR HYPERGLY) 143 mmol/L (136-145); CREATININE 1.07 mg/dL (0.70-1.30); SODIUM 138 mmol/L (136-145); eGFR NON BLACK RACES > 60 (>60)
--- NOTE | 2018-01-27 14:12 | PCM.PROG ---
Progress Note - Progress Note for Day of Date of Exam: 01/26/18 - Subjective Subjective: 22 BM ER ADMISSION ON 01/22 WITH DKA, UPPER ABDOMINAL PAIN. PT DEINES ABDOMINAL PAIN THIS AM. WBC 8.0, POTASSIUM 3.0 WITH POTASSIUM REPLACEMENT, IV FLUIDS DECREASED. PT MORE AWAKE AND ACTIVE, STATES HE IS VERY HUNGRY. PT CO CRAMPS IN HIS FEET. BS AND CARDIAC MONITORING WITH SUPPLEMENTAL O2 PRN. MONITOR I&OS, PPI THERAPY AND PAIN AND NAUSEA CONTROL - Past Medical Family Social History Past Med/Fam/Surg Hx: No changes since H&P Allergies: Allergies No Known Drug Allergies Allergy (Verified 01/22/18 18:02) - Review of Systems ROS: No change since H&P - Vital Signs and I&O's Vital Signs: Temperature 99.1 F Pulse Rate [Right Brachial] 74 Pulse Rate 92 Respiratory Rate 20 Blood Pressure [Left Arm] 135/67 Blood Pressure 155/96 O2 Sat by Pulse Oximetry 98 Intake and Output: Intake & Output 01/25/18 01/26/18 01/27/18 01/28/18 11:59 11:59 11:59 11:59 Intake Total 95934 / 85320 8247 / 8247 8523 / 8523 Output Total 7250 / 7250 6500 / 6500 4875 / 4875 Balance 4686 / 4686 1747 / 1747 3648 / 3648 - Physical Exam Oriented: Normal Eyes: Normal Ear: Normal Nose: Normal Throat: Normal Respiratory: Normal Cardiovascular: Normal : Normal Auscultation: Bowel Sounds: Increased Tenderness: LUQ, Epigastric, Mild Skin: Normal Musculoskeletal: Normal Mood Description: Anxious Affect: Anxious Speech Pattern: Clear, Appropriate - Laboratory and Diagnostics Result Diagrams: 01/27/18 05:16 01/27/18 05:16 Labs: 01/23/18 14:05 Blood Blood Culture - Preliminary 01/23/18 13:59 Blood Blood Culture - Preliminary Laboratory WBC 12.6 X10^3/uL (3.6-10.0) H 01/27/18 05:16 RBC 4.35 X10^6/uL (4.7-6.0) L 01/27/18 05:16 Hgb 11.9 g/dL (13.5-18.0) L 01/27/18 05:16 Hct 34.5 % (42.0-54.0) L 01/27/18 05:16 MCV 79.4 fL (80.0-100.0) L 01/27/18 05:16 MCH 27.3 pg (27.0-34.0) 01/27/18 05:16 MCHC 34.4 g/dL (33.0-35.0) 01/27/18 05:16 RDW 13.6 % (11.6-16.5) 01/27/18 05:16 Plt Count 182 X10^3/uL (150.0-450.0) 01/27/18 05:16 MPV 10.1 fL (7.4-11.0) 01/27/18 05:16 Neut % (Auto) 66.5 % (42.0-75.0) 01/27/18 05:16 Lymph % (Auto) 22.9 % (21.0-51.0) 01/27/18 05:16 [place] % (Auto) 7.6 % (0.0-13.0) 01/27/18 05:16 Eos % (Auto) 2.2 % (0.9-2.9) 01/27/18 05:16 Baso % (Auto) 0.8 % (0.2-1.0) 01/27/18 05:16 Neut # (Auto) 8.4 x10^3/uL (2.2-4.8) H 01/27/18 05:16 Lymph # (Auto) 2.9 X10^3/uL (1.3-2.9) 01/27/18 05:16 [place] # (Auto) 1.0 x10^3/uL (0.3-0.8) H 01/27/18 05:16 Eos # (Auto) 0.3 x10^3/uL (0.0-0.2) H 01/27/18 05:16 Baso # (Auto) 0.1 X10^3/uL (0.0-0.1) 01/27/18 05:16 Absolute Nucleated RBC 0.1 /100WBC 01/27/18 05:16 Absolute Retic 0.0800 10^6/uL 01/22/18 18:45 Percent Retic 1.30 % (0.8-2.2) 01/22/18 18:45 Sample Site Rr 01/24/18 15:53 ABG pH 7.440 (7.35-7.45) 01/24/18 15:53 ABG pCO2 34.0 mmHg (35.0-45.0) L 01/24/18 15:53 ABG pO2 111.0 mmHg (80.0-100.0) H 01/24/18 15:53 ABG HCO3 23.1 mmol/L (22-26) 01/24/18 15:53 ABG O2 Saturation 99.0 % (90-100) 01/24/18 15:53 ABG Base Excess -0.6 mmol/L (-2.0-2.0) 01/24/18 15:53 Murphy Test Pos 01/24/18 15:53 A-a Gradient -4.0 mmHg 01/24/18 15:53 FiO2 21.0 01/24/18 15:53 Blood Gas Comments Pt chester well elj 01/24/18 15:53 Sodium 142 mmol/L (136-145) 01/27/18 05:16 Corrected Sodium 142 mmol/L (136-145) 01/27/18 05:16 Potassium 2.9 mmol/L (3.5-5.1) L* 01/27/18 05:16 Chloride 106 mmol/L (98-107) 01/27/18 05:16 Carbon Dioxide 28.8 mmol/L (21-32) 01/27/18 05:16 BUN 8 mg/dL (7-18) 01/27/18 05:16 Creatinine 0.58 mg/dL (0.70-1.30) L 01/27/18 05:16 Est GFR (MDRD) Af Amer > 60 (>60) 01/27/18 05:16 Est GFR (MDRD) Non-Af > 60 (>60) 01/27/18 05:16 Glucose 116 mg/dL (65-99) H 01/27/18 05:16 POC Glucose (mg/dL) 299 mg/dL (65-99) H 01/27/18 13:26 Lactic Acid 0.6 mmol/L (0.4-2.0) 01/23/18 13:59 Calcium 7.5 mg/dL (8.5-10.1) L 01/27/18 05:16 Corrected Calcium 8.6 mg/dL (8.5-10.1) 01/26/18 06:03 Magnesium 1.7 mg/dL (1.7-2.9) 01/27/18 05:16 Total Bilirubin 0.10 mg/dL (0.2-1.0) L 01/26/18 06:03 AST 75 Units/L (15-37) H 01/26/18 06:03 ALT 82 Units/L (12-78) H 01/26/18 06:03 Alkaline Phosphatase 44 Units/L (46-116) L 01/26/18 06:03 Creatine Kinase 44 Units/L (39-308) 01/23/18 03:02 CK-MB (CK-2) 1.5 ng/mL (0-4.0) 01/23/18 03:02 CK/CKMB % Calc 3.4 % (<4) 01/23/18 03:02 Troponin I < 0.02 ng/mL (0-1.5) 01/23/18 03:02 C-Reactive Protein 3.80 mg/L (0-3.0) H 01/22/18 18:45 Total Protein 5.5 g/dL (6.4-8.2) L 01/26/18 06:03 Albumin 2.1 g/dL (3.4-5.0) L 01/26/18 06:03 Globulin 3.4 g/dL (2.5-4.5) 01/26/18 06:03 Albumin/Globulin Ratio 0.6 Ratio (1.1-2.1) L 01/26/18 06:03 Specimen Type Random urine 01/22/18 18:36 Urine Color Yellow (YELLOW) 01/22/18 18:36 Urine Appearance Slightly hazy (CLEAR) 01/22/18 18:36 Urine pH 5.0 (5.0 - 8.0) 01/22/18 18:36 Ur Specific [place] 1.025 (1.000-1.030) 01/22/18 18:36 Urine Protein 2+ (NEGATIVE) 01/22/18 18:36 Urine Glucose (UA) 4+ (NEGATIVE) 01/22/18 18:36 Urine Ketones 4+ (NEGATIVE) 01/22/18 18:36 Urine Occult Blood 2+ (NEGATIVE) 01/22/18 18:36 Urine Nitrite Negative (NEGATIVE) 01/22/18 18:36 Urine Bilirubin Negative (NEGATIVE) 01/22/18 18:36 Urine Acetone Moderate (NEGATIVE) 01/24/18 08:02 Urine Urobilinogen Normal (NORMAL) 01/22/18 18:36 Ur Leukocyte Esterase Negative (NEGATIVE) 01/22/18 18:36 Urine RBC 0-2 /HPF (NONE SEEN) 01/22/18 18:36 Urine WBC 0-2 /HPF (NONE SEEN) 01/22/18 18:36 Ur Squamous Epith Cells Rare /HPF (NEGATIVE) 01/22/18 18:36 Urine Bacteria Trace /HPF (NEGATIVE) 01/22/18 18:36 Urine Mucus Few /HPF (NEGATIVE) 01/22/18 18:36 Ur Culture Indicated? No/not indicated 01/22/18 18:36 Urine Opiates Screen Negative (NEG=<300) 01/22/18 18:36 Urine Methadone Screen Negative (NEG=<300) 01/22/18 18:36 Ur Barbiturates Screen Negative (NEG=<200) 01/22/18 18:36 Ur Phencyclidine Scrn Negative (NEG=<25) 01/22/18 18:36 Ur Amphetamines Screen Negative (NEG=<1000) 01/22/18 18:36 U Benzodiazepines Scrn Negative (NEG=<200) 01/22/18 18:36 Urine Cocaine Screen Negative (NEG=<300) 01/22/18 18:36 U Marijuana (THC) Screen Negative (NEG=<50) 01/22/18 18:36 Acetone, Semi-Quant Small (NEGATIVE) H 01/25/18 05:51 - Plan (1) DKA (diabetic ketoacidoses) Status: Acute Plan: INSULIN DRIP PER PROTOCOL, REPEAT ABG, AM ACETONE. GENTLE IV HYDRATION, I&OS, SUPPLEMENTAL O2. LACTIC ACID LEVEL, IV LEVAQUIN, ORAL HYDRATION. PAIN AND NAUSEA CONTROL PRN, PPI THERAPY (2) Abdominal pain Status: Acute Plan: ICU INSULIN DRIP D/C'D. IV HYDRATION, STRICT I & OS. NPO, PAIN AND N AUSEA CONTROL. PPI THERAPY, BS PER INSULIN PROTOCOL, SUPPLEMENTAL O2. REPEAT AM LABS (3) Diabetes mellitus Status: Acute Qualifiers: Diabetes mellitus type: type 1 Diabetes mellitus complication status: with hyperglycemia Qualified Code(s): E10.65 - Type 1 diabetes mellitus with hyperglycemia (4) DKA, type 1 Status: Acute (5) Hypokalemia Status: Acute Plan: POTASSIUM REPLACEMENT PER PROTOCOL.
[2018-01-27] MEDS ORDERED: SNACK - Diabetic Appropriate PO SCH (20:00)
[2018-01-28] MEDS: HumuLIN R SC PRN ×2 (04:00)
[2018-01-28 06:11] LABS: BLOOD UREA NITROGEN 12 mg/dL (7-18); CALCIUM 7.4 mg/dL (8.5-10.1); CARBON DIOXIDE 25.3 mmol/L (21-32); CHLORIDE 106 mmol/L (98-107); COR NA(FOR HYPERGLY) 143 mmol/L (136-145); CREATININE 0.68 mg/dL (0.70-1.30); MAGNESIUM 1.6 mg/dL (1.7-2.9); SODIUM 140 mmol/L (136-145); eGFR NON BLACK RACES > 60 (>60)
[2018-01-28] MEDS: NS 1000 ML 1,000 ML IV SCH ×2 (07:44→12:14)
[2018-01-28] MEDS: MAGNESIUM SULFATE 1 GRAM/100 mL PREMIX 1 GM/100 ML BAG IV PRN (08:01)
[2018-01-28 08:29] LABS: BASOPHILS # (AUTO) 0.1 X10^3/uL (0.0-0.1); BASOPHILS % (AUTO) 0.8 % (0.2-1.0); EOSINOPHILS # (AUTO) 0.3 x10^3/uL (0.0-0.2); EOSINOPHILS % (AUTO) 2.6 % (0.9-2.9); HEMATOCRIT 34.9 % (42.0-54.0); LYMPHOCYTES # (AUTO) 2.8 X10^3/uL (1.3-2.9); LYMPHOCYTES % (AUTO) 28.7 % (21.0-51.0); MEAN CORPUSCULAR HEMOGLOBIN 27.7 pg (27.0-34.0); MEAN CORPUSCULAR HGB CONC 34.3 g/dL (33.0-35.0); MEAN CORPUSCULAR VOLUME 80.7 fL (80.0-100.0); MEAN PLATELET VOLUME 9.7 fL (7.4-11.0); MONOCYTES # (AUTO) 0.8 x10^3/uL (0.3-0.8); MONOCYTES % (AUTO) 7.9 % (0.0-13.0); NEUTROPHILS # (AUTO) 5.9 x10^3/uL (2.2-4.8); PLATELET COUNT 221 X10^3/uL (150.0-450.0); RED BLOOD COUNT 4.33 X10^6/uL (4.7-6.0); RED CELL DISTRIBUTION WIDTH 13.6 % (11.6-16.5); WHITE BLOOD COUNT 9.8 X10^3/uL (3.6-10.0)
[2018-01-28 08:51] LABS: ALANINE AMINOTRANSFERASE 146 Units/L (12-78); ALBUMIN 2.2 g/dL (3.4-5.0); ALKALINE PHOSPHATASE 60 Units/L (46-116); ASPARTATE AMINO TRANSFERASE 182 Units/L (15-37); BLOOD UREA NITROGEN 12 mg/dL (7-18); CALCIUM 7.3 mg/dL (8.5-10.1); CARBON DIOXIDE 29.6 mmol/L (21-32); CHLORIDE 105 mmol/L (98-107); COR CA(FOR HYPOALB) 8.7 mg/dL (8.5-10.1); COR NA(FOR HYPERGLY) 145 mmol/L (136-145); CREATININE 0.86 mg/dL (0.70-1.30); MAGNESIUM 1.7 mg/dL (1.7-2.9); SODIUM 141 mmol/L (136-145); TOTAL PROTEIN 5.9 g/dL (6.4-8.2); eGFR NON BLACK RACES > 60 (>60)
[2018-01-28] MEDS: LEVAQUIN PREMIX IV 500 MG 500 MG/100 ML BAG IV SCH (09:15)
[2018-01-28] MEDS: PROTONIX INJ 40 MG VIAL IVP SCH (09:15)
[2018-01-28 12:12] VITALS: BP 110/52
== END 2018-01-28 14:00 | disposition home or self-care (01) | DRG 639 ==
LOC: ER 17:38 → ICU 17:38
PROVIDERS: ADMIT Internal Medicine; ATTEND Internal Medicine
DX: Z79.4 Long term (current) use of insulin; E87.6 Hypokalemia; R79.82 Elevated C-reactive protein (CRP); R10.84 Generalized abdominal pain; E10.10 Type 1 diabetes mellitus with ketoacidosis without coma
CPT/HCPCS: 36415; 36600; 74022; 80048; 80053; 80307; 81001; 82009; 82550; 82553; 82803; 82947; 83605; 83735; 84132; 84484; 85025; 85045; 86140; 87040; 93005; 93010; 96365; 96367; 96374; 99283; 99285; A4222; C9113; G0378; G0434; J1815; J1956; J2405; J2550; J3475; J3480; J3490; J7030; J7050

== ENCOUNTER 2018-03-13 13:27 | Inpatient (IN) ==
[2018-03-13 13:42] VITALS: BMI 23.7
[2018-03-13] MEDS ORDERED: NS 1000 ML 1,000 ML IV ONE ×2 (14:29→15:36)
--- NOTE | 2018-03-13 14:30 | DR.HYPOGLY ---
HPI Time Seen Time Seen by Provider: 03/13/18 14:25 PCP Primary Care Physician: NFD Complaint Chief Complaint Doctors Comments: Patient presents with complaint that his sugar is high for four days. He does not know how high; takes insulin but does not know how much. Does not have a physician. Chief Complaint:: PT STATES I AM HERE FOR MY DIABETES AND MY SUGAR IS HIGH,,BR Self Treatment fo Chief Complaint: PT IS VERY SHORT AND SNIPPY WITH HIS ANSWERS AND HE STATES HE HAS NO WAY TO CHECK HIS SUGAR AND NO MEDS HE JUST KNOW ITS HIGH AND HE NEED TO GET TO THE BACK , PT STATES I DON'T KNOW HOW LONG ITS BEEN HIGH BUT I KNOW ITS HIGH, Source History Provided: Patient Mode of Arrival Mode of Arrival: Ambulatory Timing Onset of Chief Complaint: 03/12/18 PMH PMH Past Medical History: No Past Surgical History: No Family History History of Family Medical Conditions: No Social History Does patient currently use any type of tobacco product: No Have you used tobacco products in the last 12 months: No Type of Tobacco Use: None Does any household member use tobacco: No Alcohol Use: None Do you use any recreational Drugs:: No Lives With: Alone Lives Where: Home infectious screening In the last 2 months have you had wt loss of >10#?: NO Have you had fever, night sweats or hemotysis?: No Have you traveled outside the country in the last 6 months?: No Isolation: Standard PE Vital Signs Vitals: Temperature 98.2 F Pulse Rate [Bilateral Radial] 76 Pulse Rate 88 Respiratory Rate 18 Blood Pressure [Left Arm] 131/96 Blood Pressure 131/82 O2 Sat by Pulse Oximetry 100 General Limitations: Language Barrier General Appearance: Alert Eyes Eye exam: Normal Appearance, PERRL and EOMI Pupils: Regular, Round: Bilateral Sclera/Conjunctival: Normal Inspection: Bilateral ENT ENT Exam: Normal Exam and Normal External Ear Exam Nose Exam: Normal Nose Exam Mouth Exam: Normal Inspection Throat Exam: Normal Inspection Neck Neck Exam: Normal Inspection Chest Chest Inspection: Normal Inspection and Symmetric Chest Wall Rise Respiratory Respiratory Exam: Normal Lung Sounds Bilat Respiratory Exam: Bilateral: Clear to Auscultation Cardiovascular Cardiovascular Exam: Regular Rate and Normal Rhythm Abdominal Exam Abdominal Exam: Normal Inspection, Normal Bowel Sounds and Hypoactive Bowel Sounds Extremities Extremities Exam: Normal Inspection and Full ROM Back Back Exam: Normal Inspection Neurologic Neurological Exam: Alert, Oriented X3, CN II-XII Intact and Normal Gait Speech: Fluid Speech Cranial Nerve Exam: EOM Function (II, III, IV, ): Normal Psychiatric Psychiatric Exam: Agitated Skin Skin Exam: Warm and Dry COURSE Treatment Treatment: NS, insulin IV ROR Labs Reviewed Result Diagrams: 03/13/18 14:42 03/13/18 14:42 Laboratory: WBC 16.2 X10^3/uL (3.6-10.0) H 03/13/18 14:42 RBC 5.57 X10^6/uL (4.7-6.0) 03/13/18 14:42 Hgb 15.8 g/dL (13.5-18.0) 03/13/18 14:42 Hct 48.5 % (42.0-54.0) 03/13/18 14:42 MCV 87.0 fL (80.0-100.0) 03/13/18 14:42 MCH 28.3 pg (27.0-34.0) 03/13/18 14:42 MCHC 32.5 g/dL (33.0-35.0) L 03/13/18 14:42 RDW 15.6 % (11.6-16.5) 03/13/18 14:42 Plt Count 460 X10^3/uL (150.0-450.0) H 03/13/18 14:42 MPV 8.6 fL (7.4-11.0) 03/13/18 14:42 Neut % (Auto) 84.2 % (42.0-75.0) H 03/13/18 14:42 Lymph % (Auto) 10.7 % (21.0-51.0) L 03/13/18 14:42 [place] % (Auto) 4.0 % (0.0-13.0) 03/13/18 14:42 Eos % (Auto) 0.1 % (0.9-2.9) L 03/13/18 14:42 Baso % (Auto) 1.0 % (0.2-1.0) 03/13/18 14:42 Neut # (Auto) 13.7 x10^3/uL (2.2-4.8) H 03/13/18 14:42 Lymph # (Auto) 1.7 X10^3/uL (1.3-2.9) 03/13/18 14:42 [place] # (Auto) 0.6 x10^3/uL (0.3-0.8) 03/13/18 14:42 Eos # (Auto) 0.0 x10^3/uL (0.0-0.2) 03/13/18 14:42 Baso # (Auto) 0.2 X10^3/uL (0.0-0.1) H 03/13/18 14:42 Absolute Nucleated RBC 0.1 /100WBC 03/13/18 14:42 Sample Site Left brachial 03/13/18 15:30 ABG pH 7.190 (7.35-7.45) L* 03/13/18 15:30 ABG pCO2 14.0 mmHg (35.0-45.0) L* 03/13/18 15:30 ABG pO2 133.0 mmHg (80.0-100.0) H 03/13/18 15:30 ABG HCO3 5.3 mmol/L (22-26) L* 03/13/18 15:30 ABG O2 Saturation 98.0 % (90-100) 03/13/18 15:30 ABG Base Excess -20.5 mmol/L (-2.0-2.0) L 03/13/18 15:30 Murphy Test Na 03/13/18 15:30 A-a Gradient -1.0 mmHg 03/13/18 15:30 FiO2 21.0 03/13/18 15:30 Blood Gas Comments Sree well aw 03/13/18 15:30 Sodium 124 mmol/L (136-145) L* 03/13/18 14:42 Corrected Sodium 133 mmol/L (136-145) L 03/13/18 14:42 Potassium 4.9 mmol/L (3.5-5.1) 03/13/18 14:42 Chloride 88 mmol/L (98-107) L 03/13/18 14:42 Carbon Dioxide 9.3 mmol/L (21-32) L* 03/13/18 14:42 BUN 17 mg/dL (7-18) 03/13/18 14:42 Creatinine 1.37 mg/dL (0.70-1.30) H 03/13/18 14:42 Est GFR (MDRD) Af Amer > 60 (>60) 03/13/18 14:42 Est GFR (MDRD) Non-Af > 60 (>60) 03/13/18 14:42 Glucose 491 mg/dL (65-99) H 03/13/18 14:42 Hemoglobin A1c 11.8 % 03/13/18 14:42 Calcium 8.7 mg/dL (8.5-10.1) 03/13/18 14:42 Phosphorus 3.8 mg/dL (2.6-4.7) 03/13/18 14:42 Magnesium 2.0 mg/dL (1.7-2.9) 03/13/18 14:42 ADDITIONAL NOTES Additional Notes Additional Notes: Patient admitted to ICU
[2018-03-13] MEDS ORDERED: NS 1000 ML 1,000 ML ONE ×3 (14:34→16:50)
[2018-03-13 14:50] LABS: BASOPHILS # (AUTO) 0.2 X10^3/uL (0.0-0.1); EOSINOPHILS % (AUTO) 0.1 % (0.9-2.9); HEMATOCRIT 48.5 % (42.0-54.0); HEMOGLOBIN 15.8 g/dL (13.5-18.0); LYMPHOCYTES # (AUTO) 1.7 X10^3/uL (1.3-2.9); LYMPHOCYTES % (AUTO) 10.7 % (21.0-51.0); MEAN CORPUSCULAR HEMOGLOBIN 28.3 pg (27.0-34.0); MEAN CORPUSCULAR HGB CONC 32.5 g/dL (33.0-35.0); MEAN PLATELET VOLUME 8.6 fL (7.4-11.0); MONOCYTES # (AUTO) 0.6 x10^3/uL (0.3-0.8); NEUTROPHILS # (AUTO) 13.7 x10^3/uL (2.2-4.8); NEUTROPHILS % (AUTO) 84.2 % (42.0-75.0); PLATELET COUNT 460 X10^3/uL (150.0-450.0); RED BLOOD COUNT 5.57 X10^6/uL (4.7-6.0); RED CELL DISTRIBUTION WIDTH 15.6 % (11.6-16.5); WHITE BLOOD COUNT 16.2 X10^3/uL (3.6-10.0)
[2018-03-13 15:00] LABS: HEMOGLOBIN A1C 11.8 %
[2018-03-13 15:04] LABS: BLOOD UREA NITROGEN 17 mg/dL (7-18); CALCIUM 8.7 mg/dL (8.5-10.1); CHLORIDE 88 mmol/L (98-107); COR NA(FOR HYPERGLY) 133 mmol/L (136-145); CREATININE 1.37 mg/dL (0.70-1.30); eGFR NON BLACK RACES > 60 (>60)
[2018-03-13 15:06] LABS: CARBON DIOXIDE 9.3 mmol/L (21-32); SODIUM 124 mmol/L (136-145)
[2018-03-13] MEDS ORDERED: SODIUM BICARBONATE 8.4% INJ ADULT IVP ONE (15:13)
[2018-03-13] MEDS ORDERED: SODIUM BICARBONATE 8.4% INJ ADULT ONE ×2 (15:13→16:51)
[2018-03-13] MEDS: HumuLIN R SUBCUT PRN ×4 (15:35→21:46)
[2018-03-13 15:43] LABS: PHOSPHORUS 3.8 mg/dL (2.6-4.7)
[2018-03-13 15:47] LABS: ABG BASE EXCESS -20.5 mmol/L (-2.0-2.0)
[2018-03-13 15:50] LABS: ABG HCO3 5.3 mmol/L (22-26)
--- NOTE | 2018-03-13 16:58 | RAD ---
HISTORY: DKA Study: Single view of the chest. Comparison: 02/05/2018 Findings: The cardiomediastinal silhouette is normal. No focal consolidations, pleural effusions or pneumothorax. Osseous structures demonstrate no acute abnormality. IMPRESSION: 1. No acute cardiopulmonary process. Reported By:
[2018-03-13] MEDS ORDERED: NS + KCL 20 MEQ/L 1,000 ML IV SCH (17:00)
[2018-03-13 17:11] LABS: BILIRUBIN,URINE NEGATIVE (NEGATIVE); BLOOD/HEMOGLOBIN,URINE 1+ (NEGATIVE); GLUCOSE, URINE 4+ (NEGATIVE); KETONES,URINE 4+ (NEGATIVE); LEUKOCYTE ESTERASE ,URINE NEGATIVE (NEGATIVE); NITRITES,URINE NEGATIVE (NEGATIVE); PROTEIN,URINE 2+ (NEGATIVE); UROBILINOGEN,URINE NORMAL (NORMAL)
[2018-03-13 17:19] LABS: AMORPHOUS SEDIMENT,UR 1+ /HPF (NEGATIVE); APPEARANCE,URINE CLEAR (CLEAR); BACTERIA,URINE TRACE /HPF (NEGATIVE); COLOR,URINE PALE YELLOW (YELLOW); RBC,URINE NONE SEEN /HPF (NONE SEEN); SQUAMOUS EPITHELIAL CELL,UR RARE /HPF (NEGATIVE)
[2018-03-13] MEDS ORDERED: NS 1000 ML 1,000 ML with SODIUM BICARBONATE 8.4% INJ ADULT 100 ML IV ONE ×2 (17:22)
[2018-03-13] MEDS ORDERED: SODIUM BICARBONATE 8.4% IV SCH ×2 (17:27)
[2018-03-13] MEDS ORDERED: KCL IV SCH ×2 (17:27)
[2018-03-13] MEDS ORDERED: NS IV SCH ×2 (17:27)
[2018-03-13] MEDS: NS 1000 ML 1,000 ML with SODIUM BICARBONATE 8.4% INJ ADULT 50 ML IV SCH ×2 (18:06)
[2018-03-13 18:52] LABS: BLOOD UREA NITROGEN 15 mg/dL (7-18); CALCIUM 7.6 mg/dL (8.5-10.1); CHLORIDE 92 mmol/L (98-107); COR NA(FOR HYPERGLY) 133 mmol/L (136-145); CREATININE 1.16 mg/dL (0.70-1.30); SODIUM 127 mmol/L (136-145); eGFR NON BLACK RACES > 60 (>60)
[2018-03-13 18:55] LABS: CARBON DIOXIDE 10.6 mmol/L (21-32)
[2018-03-13 19:05] LABS: CKMB % 2.5 % (<4); CREATINE KINASE 145 Units/L (39-308); CREATINE KINASE MB 3.6 ng/mL (0-4.0); TROPONIN I < 0.02 ng/mL (0-1.5)
[2018-03-13] MEDS: SNACK - Diabetic Appropriate PO SCH ×2 (20:15→21:53)
[2018-03-13 23:50] LABS: BLOOD UREA NITROGEN 17 mg/dL (7-18); CALCIUM 7.6 mg/dL (8.5-10.1); CHLORIDE 98 mmol/L (98-107); COR NA(FOR HYPERGLY) 136 mmol/L (136-145); SODIUM 130 mmol/L (136-145); eGFR NON BLACK RACES > 60 (>60)
[2018-03-13 23:54] LABS: CARBON DIOXIDE 8.2 mmol/L (21-32)
[2018-03-13 23:55] LABS: ABG BASE EXCESS -17.4 mmol/L (-2.0-2.0)
[2018-03-13 23:56] LABS: ABG HCO3 7.5 mmol/L (22-26)
[2018-03-14] MEDS: NS 1000 ML 1,000 ML with SODIUM BICARBONATE 8.4% INJ ADULT 50 ML IV SCH ×4 (01:15→11:52)
[2018-03-14] MEDS: HumuLIN R SUBCUT PRN (01:30)
[2018-03-14 06:10] LABS: BASOPHILS # (AUTO) 0.1 X10^3/uL (0.0-0.1); BASOPHILS % (AUTO) 0.9 % (0.2-1.0); EOSINOPHILS # (AUTO) 0.1 x10^3/uL (0.0-0.2); HEMATOCRIT 39.2 % (42.0-54.0); HEMOGLOBIN 13.2 g/dL (13.5-18.0); LYMPHOCYTES % (AUTO) 23.9 % (21.0-51.0); MEAN CORPUSCULAR HEMOGLOBIN 28.1 pg (27.0-34.0); MEAN CORPUSCULAR HGB CONC 33.8 g/dL (33.0-35.0); MEAN CORPUSCULAR VOLUME 83.4 fL (80.0-100.0); MEAN PLATELET VOLUME 8.4 fL (7.4-11.0); MONOCYTES % (AUTO) 7.7 % (0.0-13.0); NEUTROPHILS # (AUTO) 8.3 x10^3/uL (2.2-4.8); NEUTROPHILS % (AUTO) 66.5 % (42.0-75.0); PLATELET COUNT 347 X10^3/uL (150.0-450.0); RED CELL DISTRIBUTION WIDTH 14.9 % (11.6-16.5); WHITE BLOOD COUNT 12.4 X10^3/uL (3.6-10.0)
[2018-03-14 06:27] LABS: ALANINE AMINOTRANSFERASE 87 Units/L (12-78); ALBUMIN 2.3 g/dL (3.4-5.0); ALKALINE PHOSPHATASE 67 Units/L (46-116); ASPARTATE AMINO TRANSFERASE 68 Units/L (15-37); BLOOD UREA NITROGEN 11 mg/dL (7-18); CALCIUM 7.6 mg/dL (8.5-10.1); CARBON DIOXIDE 17.4 mmol/L (21-32); CHLORIDE 103 mmol/L (98-107); COR NA(FOR HYPERGLY) 136 mmol/L (136-145); CREATININE 0.87 mg/dL (0.70-1.30); SODIUM 134 mmol/L (136-145); TOTAL PROTEIN 6.8 g/dL (6.4-8.2); eGFR NON BLACK RACES > 60 (>60)
[2018-03-14 07:19] LABS: ABG BASE EXCESS -7.4 mmol/L (-2.0-2.0)
[2018-03-14 07:20] LABS: ABG HCO3 17.1 mmol/L (22-26)
[2018-03-14 09:02] VITALS: BP 99/51
--- NOTE | 2018-03-21 11:01 | DR.CARTERS ---
Short Stay Summary - Short Stay Summary for: Short Stay Summary for Date of:: 03/14/18 - Admission Date Date of Admission: 03/13/18 - Discharge Date Discharge Date: 03/14/18 - Hospital Course Hospital Course: IS A 22 YEAR OLD BLACK MALE WHO PRESENTED TO THE EMERGENCY ROOM WITH COMPLAINTS OF HYPERGLYCEMIA. HE REPORTED THAT HE HAD NO WAY TO CHECK HIS GLUCOSE AND THAT HE DIDNT KNOW HOW HIGH IT WAS, HE JUST KNEW THAT IT WAS HIGH. HE WAS RECENTLY DISCHARGED FROM THE HOSPITAL FOR DKA. A PRESCRIPTION FOR INSULIN WAS SENT TO HIS PHARMACY, HOWEVER, PHARMACY REPORTS THAT HE DID NOT GET THE PRESCRIPTION FILLED. ON ARRIVAL, VITALS WERE 98.2-88-20-100%-131/82. LABS WERE OBTAINED. ABNORMAL LAB VALUES INCLUDED THE FOLLOWING: WBC 16.2, PLT COUNT 460, SODIUM 124, CHLORIDE 88, CARBON DIOXIDE 9.3, CREATININE 1.37, GLUCOSE 491. URINE ACETONES SMALL. BLOOD CULTURES PENDING. A CHEST XRAY WAS OBTAINED AND REVEALED: NO ACUTE CARDIOPULMONARY PROCESS. EKG REVEALED: SINUS RHYTHM WITH HR 89. AN ABG WAS OBTAINED AND REVEALED: PH 7.190, PC02 14.0, P02 133.0, HC03 5.3, 02 SAT 98.0, BASE EXCESS -20.5. HE WAS GIVEN A NORMAL SALINE BOLUS X 2 IN THE ER AND ONE AMP OF SODIUM BICARB. HE WAS ADMITTED FOR FURTHER EVALUATION AND TREATMENT OF DEHYDRATION, HYPOKALEMIA, AND WEAKNESS. HE WAS STARTED ON NORMAL SALINE WITH 20MEQ KCL AT 125ML/HR. WE PALNNED TO MONITOR OTBS ACHS AND HUMULIN R PER PROTOCOL. WE PLANNED TO FOLLOW UP WITH AM LABS AND CONTINUE TO MONITOR. ON THE MORNING FOLLOWING ADMISSION, PATIENT IS ALERT AND ORIENTED, LYING IN BED ON MORNINGROUNDS. HE REPORTS FEELING WELL THIS MORNING AND DENIES COMPLAINTS AND IS REQUESTING TO GO HOME. HIS VITALS THIS MORNING ARE 98.5-76-12-100%-99/49. LABS WERE OBTAINED. ABNORMAL LAB VALUES INCLUDE THE FOLLOWING: WBC 12.4, HGB 13.2, HCT 39.2, SODIUM 134, CARBON DIOXIDE 17.4, GLUCOSE 164, CALCIUM 7.6, AST 68, ALT 87, ALBUMIN 2.3. - Discharge Medications Discharge Medications: Home Medication List NK 03/14/18 [History] insulin NPH and regular human [Novolin 70/30 U-100 Insulin] 10 unit SUBCUT BID #1 vial 03/14/18 [Rx] Prescriptions: insulin NPH and regular human [Novolin 70/30 U-100 Insulin] Jay Cavazos - Discharge Plan Disposition: HOME, SELF-CARE Condition: Stable Prescriptions: insulin NPH and regular human [Novolin 70/30 U-100 Insulin] 10 unit SUBCUT BID #1 vial - Follow up/Referrals Follow up/Referrals: Rubia Frankel [Nurse Practitioner] - 03/18/18 6:30 pm - Instructions Instructions: Hyponatremia, [id number], Form - Daily Diabetes Record, Hypokalemia, Diabetes Mellitus and Sick Day Management, Coping With Diabetes, Diabetic Ketoacidosis, Type 2 Diabetes Mellitus, Self Care, Adult, [id number], How to Avoid Diabetes Mellitus Problems, How and Where to Give Subcutaneous Insulin Injections, Adult, Blood Glucose Monitoring, Adult Additional Instructions: DIABETIC DIET. ACTIVITY TOLERATED. Forms: Patient Portal
== END 2018-03-14 20:40 | disposition home or self-care (01) | DRG 641 ==
LOC: ER 13:35 → MED/SURG 16:48 → ICU 17:37
PROVIDERS: ADMIT Internal Medicine; ATTEND Internal Medicine
DX: E86.0 Dehydration; Z79.4 Long term (current) use of insulin; R53.1 Weakness; E87.6 Hypokalemia; E10.65 Type 1 diabetes mellitus with hyperglycemia
CPT/HCPCS: 36415; 36600; 71010; 71045; 80048; 80053; 81001; 82009; 82550; 82553; 82803; 82947; 83036; 83735; 84100; 84484; 85025; 87040; 93005; 96365; 96367; 96374; 96375; 99282; 99284; A4222; J1815; J3490; J7030

== ENCOUNTER 2018-10-14 15:39 | Inpatient (IN) ==
[2018-10-14] MEDS ORDERED: NS 1000 ML 1,000 ML IV ONE ×2 (15:48→16:45)
[2018-10-14] MEDS ORDERED: NS 1000 ML 1,000 ML ONE ×2 (15:51→16:37)
[2018-10-14 16:08] LABS: BASOPHILS # (AUTO) 0.1 X10^3/uL (0.0-0.1); BASOPHILS % (AUTO) 0.7 % (0.2-1.0); EOSINOPHILS # (AUTO) 0.1 x10^3/uL (0.0-0.2); HEMATOCRIT 37.6 % (42.0-54.0); HEMOGLOBIN 11.9 g/dL (13.5-18.0); LYMPHOCYTES # (AUTO) 1.9 X10^3/uL (1.3-2.9); LYMPHOCYTES % (AUTO) 23.9 % (21.0-51.0); MEAN CORPUSCULAR HEMOGLOBIN 27.7 pg (27.0-34.0); MEAN CORPUSCULAR HGB CONC 31.7 g/dL (33.0-35.0); MEAN CORPUSCULAR VOLUME 87.3 fL (80.0-100.0); MEAN PLATELET VOLUME 9.1 fL (7.4-11.0); MONOCYTES # (AUTO) 0.5 x10^3/uL (0.3-0.8); MONOCYTES % (AUTO) 6.5 % (0.0-13.0); NEUTROPHILS # (AUTO) 5.5 x10^3/uL (2.2-4.8); NEUTROPHILS % (AUTO) 67.9 % (42.0-75.0); PLATELET COUNT 238 X10^3/uL (150.0-450.0); RED BLOOD COUNT 4.31 X10^6/uL (4.7-6.0); RED CELL DISTRIBUTION WIDTH 15.5 % (11.6-16.5); WHITE BLOOD COUNT 8.1 X10^3/uL (3.6-10.0)
[2018-10-14] MEDS ORDERED: HumuLIN R IV ONE (16:10)
--- NOTE | 2018-10-14 16:11 | DR.HYPOGLY ---
HPI Time Seen Time Seen by Provider: 10/14/18 15:57 PCP Primary Care Physician: NFD Complaint Chief Complaint Doctors Comments: pt presented for hyperglycemia. pt is type 1 DM and poor medication compliance. He reports not eating for the past 2 d and w as recently dc home from [facility] in [place] for DKA. Today he reports being hungry, leg cramps and abdominal pain. His FSBG read high. Denies any n/v, confusion, fever. Chief Complaint:: PT TO ER WITH C/O BEING D/C FROM [facility] A WEEK AGO AND STATES HE HAS NO MD, NO MEDS , AND THAT HE DOES NOT FEEL WELL AND EMS STATES PTS BLOOD SUGAR READ, > HIGH. Self Treatment fo Chief Complaint: PT IS ALERT AND ORIENTED Nurses notes reviewed Nurses Notes Review: Yes Source History Provided: Patient and EMS Mode of Arrival Mode of Arrival: EMS Timing Onset of Chief Complaint: 10/07/18 Duration Duration: Constant Duration: Days Context [place]: denies Shaky, Confused, Found disoriented and Found unresponsive Symptoms: Generalized weakness, Poor appetite and Missed a meal; denies Sweaty and Confusion History of: Diabetes, Insulin use and Hyperglycemic episodes; denies Seizure and Hypoglycemic episodes Modifying factors Improves: Nothing Associated signs and symptoms Associated signs and symptoms: denies Chest pain, Headache, Abdominal pain, Nausea, Vomiting and Blurred Vision PMH PMH Past Medical History: Yes Past Medical History: Diabetes (type 1) Past Surgical History: Yes Surgical History: No History Family History History of Family Medical Conditions: No Social History Does patient currently use any type of tobacco product: No Have you used tobacco products in the last 12 months: No Type of Tobacco Use: None Does any household member use tobacco: No Alcohol Use: None Do you use any recreational Drugs:: No Lives With: Family Lives Where: Home infectious screening In the last 2 months have you had wt loss of >10#?: NO Have you had fever, night sweats or hemotysis?: No Have you traveled outside the country in the last 6 months?: No Isolation: Standard ROS Review of Systems Constitutional: Weakness, Fatigue and Loss of Appetite; negative Chills and Fever Eyes: negative Eye Pain ENTM: negative Nose Congestion Respiratoy: negative Dry Cough and Short of Breath Cardiovascular: negative Chest Pain and Palpitations Gastrointestinal/Abdominal: Abdominal Pain; negative Constipation, Nausea and V omiting Genitourinary: negative Dysuria and Hematuria Neurological: negative Weakness, Problems Walking and Speech Problem Musculoskeletal: Muscle Pain; negative Joint Swelling and Muscle Stiffness Integumentary: negative Rash Endocrine: Increased Hunger, Increased Thirst, Increased Urine and Decreased Appetite Psychiatric: negative Depression All Other Systems: Reviewed and Negative PE Vital Signs Vitals: Pulse Rate 80 Respiratory Rate 20 Blood Pressure [Left Arm] 131/96 Blood Pressure 123/61 O2 Sat by Pulse Oximetry 94 General Limitations: No Limitations Eyes Eye exam: Normal Appearance, PERRL and EOMI; negative Scleral Icterus Pupils: Regular, Round: Bilateral Sclera/Conjunctival: Normal Inspection: Bilateral ENT ENT Exam: Normal Exam, Normal Oropharynx and Mucous Membranes Dry Mouth Exam: Normal Inspection Throat Exam: Normal Inspection; negative Tonsillar Erythema Neck Neck Exam: Normal Inspection and Full ROM; negative Tenderness Respiratory Respiratory Exam: Normal Lung Sounds Bilat Respiratory Exam: Bilateral: Clear to Auscultation Cardiovascular Cardiovascular Exam: Regular Rate, Normal Rhythm, Tachycardia and Normal Heart Sounds Abdominal Exam Abdominal Exam: Normal Inspection, Normal Bowel Sounds and Soft; negative Distention, Tenderness and Guarding Extremities Extremities Exam: Normal Inspection, Full ROM and Normal Capillary Refill; n egative Edema and Joint Swelling Back Back Exam: Normal Inspection and Full ROM; negative (R) CVA Tenderness, (L) CVA Tenderness and Vertebral Tenderness Neurologic Neurological Exam: Alert, Oriented X3, Normal Gait and Reflexes Normal; negative Motor Sensory Deficit Patient Oriented To: Person, Place and Time Speech: Fluid Speech Psychiatric Psychiatric Exam: Normal Affect and Normal Mood Skin Skin Exam: Warm, Dry, Intact and Normal Color; negative Rash MDM Additional information Additional Information Obtained From: Old Records Differential diagnosis Differential diagnosis: Starvation (DKA, hyperglycemia, electrolyte imbalance.) COURSE Reevaluation 1st: Improved Consultation Consultation Comments: Spoke to Dr. Frankel and will admit Education/Counseling Education/Counseling: Patient, Education and Counseling Educated On: Treatment, Diagnosis, Prognosis and Needs for Follow Up ROR Labs Reviewed Laboratory Results Reviewed?: Yes Result Diagrams: 10/14/18 15:56 10/14/18 15:56 Laboratory: WBC 8.1 X10^3/uL (3.6-10.0) 10/14/18 15:56 RBC 4.31 X10^6/uL (4.7-6.0) L 10/14/18 15:56 Hgb 11.9 g/dL (13.5-18.0) L 10/14/18 15:56 Hct 37.6 % (42.0-54.0) L 10/14/18 15:56 MCV 87.3 fL (80.0-100.0) 10/14/18 15:56 MCH 27.7 pg (27.0-34.0) 10/14/18 15:56 MCHC 31.7 g/dL (33.0-35.0) L 10/14/18 15:56 RDW 15.5 % (11.6-16.5) 10/14/18 15:56 Plt Count 238 X10^3/uL (150.0-450.0) 10/14/18 15:56 MPV 9.1 fL (7.4-11.0) 10/14/18 15:56 Neut % (Auto) 67.9 % (42.0-75.0) 10/14/18 15:56 Lymph % (Auto) 23.9 % (21.0-51.0) 10/14/18 15:56 [place] % (Auto) 6.5 % (0.0-13.0) 10/14/18 15:56 Eos % (Auto) 1.0 % (0.9-2.9) 10/14/18 15:56 Baso % (Auto) 0.7 % (0.2-1.0) 10/14/18 15:56 Neut # (Auto) 5.5 x10^3/uL (2.2-4.8) H 10/14/18 15:56 Lymph # (Auto) 1.9 X10^3/uL (1.3-2.9) 10/14/18 15:56 [place] # (Auto) 0.5 x10^3/uL (0.3-0.8) 10/14/18 15:56 Eos # (Auto) 0.1 x10^3/uL (0.0-0.2) 10/14/18 15:56 Baso # (Auto) 0.1 X10^3/uL (0.0-0.1) 10/14/18 15:56 Absolute Nucleated RBC 0.1 /100WBC 10/14/18 15:56 Sample Site Rr 10/14/18 16:36 ABG pH 7.330 (7.35-7.45) L 10/14/18 16:36 ABG pCO2 32.0 mmHg (35.0-45.0) L 10/14/18 16:36 ABG pO2 105.0 mmHg (80.0-100.0) H 10/14/18 16:36 ABG HCO3 16.9 mmol/L (22-26) L* 10/14/18 16:36 ABG O2 Saturation 98.0 % (90-100) 10/14/18 16:36 ABG Base Excess -8.0 mmol/L (-2.0-2.0) L 10/14/18 16:36 Murphy Test Pos 10/14/18 16:36 A-a Gradient 5.0 mmHg 10/14/18 16:36 FiO2 21.0 10/14/18 16:36 Blood Gas Comments Pt [facility] llj 10/14/18 16:36 Sodium 124 mmol/L (136-145) L* 10/14/18 15:56 Corrected Sodium 142 mmol/L (136-145) 10/14/18 15:56 Potassium 4.8 mmol/L (3.5-5.1) 10/14/18 15:56 Chloride 91 mmol/L (98-107) L 10/14/18 15:56 Carbon Dioxide 18.4 mmol/L (21-32) L 10/14/18 15:56 BUN 17 mg/dL (7-18) 10/14/18 15:56 Creatinine 1.57 mg/dL (0.70-1.30) H 10/14/18 15:56 Est GFR (MDRD) Af Amer > 60 (>60) 10/14/18 15:56 Est GFR (MDRD) Non-Af 59 (>60) 10/14/18 15:56 Glucose 832 mg/dL (65-99) H* 10/14/18 15:56 Calcium 7.7 mg/dL (8.5-10.1) L 10/14/18 15:56 Magnesium 1.6 mg/dL (1.7-2.9) L 10/14/18 15:56 Total Bilirubin 0.50 mg/dL (0.2-1.0) 10/14/18 15:56 AST 151 Units/L (15-37) H 10/14/18 15:56 ALT 141 Units/L (12-78) H 10/14/18 15:56 Alkaline Phosphatase 80 Units/L (46-116) 10/14/18 15:56 Creatine Kinase 63 Units/L (39-308) 10/14/18 15:56 CK-MB (CK-2) < 1.0 ng/mL (0-4.0) 10/14/18 15:56 CK/CKMB % Calc 1.6 % (<4) 10/14/18 15:56 Troponin I < 0.02 ng/mL (0-1.5) 10/14/18 15:56 Total Protein 7.4 g/dL (6.4-8.2) 10/14/18 15:56 Albumin 2.8 g/dL (3.4-5.0) L 10/14/18 15:56 Globulin 4.6 g/dL (2.5-4.5) H 10/14/18 15:56 Albumin/Globulin Ratio 0.6 Ratio (1.1-2.1) L 10/14/18 15:56 Lipase 84 Units/L (73-393) 10/14/18 15:56 Specimen Type Clean catch urine 10/14/18 15:50 Urine Color Yellow (YELLOW) 10/14/18 15:50 Urine Appearance Clear (CLEAR) 10/14/18 15:50 Urine pH 5.0 (5.0 - 8.0) 10/14/18 15:50 Ur Specific [place] 1.010 (1.000-1.030) 10/14/18 15:50 Urine Protein Negative (NEGATIVE) 10/14/18 15:50 Urine Glucose (UA) 4+ (NEGATIVE) 10/14/18 15:50 Urine Ketones 3+ (NEGATIVE) 10/14/18 15:50 Urine Occult Blood Negative (NEGATIVE) 10/14/18 15:50 Urine Nitrite Negative (NEGATIVE) 10/14/18 15:50 Urine Bilirubin Negative (NEGATIVE) 10/14/18 15:50 Urine Acetone Large (NEGATIVE) 10/14/18 15:50 Urine Urobilinogen Normal (NORMAL) 10/14/18 15:50 Ur Leukocyte Esterase Negative (NEGATIVE) 10/14/18 15:50 Acetone, Semi-Quant Moderate (NEGATIVE) H 10/14/18 15:56 Other Results Comments: Hb 11.9 Na 136 corrected, Mod Ketones, XRAY XRAY Interpreted by: Radiologist XRAY Findings: CXR: NAF EKG Rate: 73 [place]: Normal Rhythm: NSR Block: None Hypertrophy: None ST: Nonsp (JOHN) Opioid Opioid Risk Tool Age (Ag box if 16-45): No History of Preadolescent Sexual Abuse: No Total: 0 Total Score Risk Category: Low Risk Copyright: Marcio RAM predicting aberrant behaviors Diagnosis Discharge Problem: DKA, type 1 Qualifiers: Diabetes mellitus complication detail: without coma Qualified Code(s): E10.10 - Type 1 diabetes mellitus with ketoacidosis without coma Uncontrolled diabetes mellitus with hyperglycemia Qualifiers: Diabetes mellitus type: type 1 Qualified Code(s): E10.65 - Type 1 diabetes mellitus with hyperglycemia Instructions Forms: Excuse From Work ADDITIONAL NOTES Additional Notes Additional Notes: Critical care time: 35
[2018-10-14 16:16] LABS: BILIRUBIN,URINE NEGATIVE (NEGATIVE); BLOOD/HEMOGLOBIN,URINE NEGATIVE (NEGATIVE); GLUCOSE, URINE 4+ (NEGATIVE); KETONES,URINE 3+ (NEGATIVE); LEUKOCYTE ESTERASE ,URINE NEGATIVE (NEGATIVE); NITRITES,URINE NEGATIVE (NEGATIVE); PROTEIN,URINE NEGATIVE (NEGATIVE); UROBILINOGEN,URINE NORMAL (NORMAL)
[2018-10-14 16:17] LABS: BLOOD UREA NITROGEN 17 mg/dL (7-18); CALCIUM 7.7 mg/dL (8.5-10.1); CARBON DIOXIDE 18.4 mmol/L (21-32); CHLORIDE 91 mmol/L (98-107); CREATININE 1.57 mg/dL (0.70-1.30); eGFR NON BLACK RACES 59 (>60)
[2018-10-14 16:17] LABS: APPEARANCE,URINE CLEAR (CLEAR); COLOR,URINE YELLOW (YELLOW)
[2018-10-14 16:19] LABS: ALANINE AMINOTRANSFERASE 141 Units/L (12-78); ALBUMIN 2.8 g/dL (3.4-5.0); ALKALINE PHOSPHATASE 80 Units/L (46-116); ASPARTATE AMINO TRANSFERASE 151 Units/L (15-37); COR CA(FOR HYPOALB) 8.7 mg/dL (8.5-10.1); TOTAL PROTEIN 7.4 g/dL (6.4-8.2)
[2018-10-14 16:22] LABS: SERUM ACETONE MODERATE (NEGATIVE)
[2018-10-14 16:25] LABS: SODIUM 124 mmol/L (136-145)
--- NOTE | 2018-10-14 16:26 | RAD ---
History: Pain Exam: Chest x-ray Comparison: 09/29/2018 Technique: PA and lateral Findings: The heart is normal. The pulmonary vessels are normal. The lungs are mildly hyperinflated. No consolidation or effusion is seen. The bones are intact. IMPRESSION: Stable chest with no acute abnormality seen. Reported By:
[2018-10-14 16:32] LABS: MAGNESIUM 1.6 mg/dL (1.7-2.9)
[2018-10-14 16:35] LABS: COR NA(FOR HYPERGLY) 142 mmol/L (136-145)
[2018-10-14] MEDS ORDERED: HumuLIN R ONE (16:37)
[2018-10-14] MEDS ORDERED: NS 100 ML IV 100 ML ONE (16:38)
[2018-10-14 16:43] LABS: CKMB % 1.6 % (<4); CREATINE KINASE 63 Units/L (39-308); CREATINE KINASE MB < 1.0 ng/mL (0-4.0); TROPONIN I < 0.02 ng/mL (0-1.5)
[2018-10-14 16:45] LABS: ABG ALLEN TEST POS; ABG HCO3 16.9 mmol/L (22-26)
[2018-10-14] MEDS ORDERED: MAGNESIUM SULFATE 1 GRAM/100 mL PREMIX 1 GM/100 ML BAG IV PRN (16:49)
[2018-10-14] MEDS ORDERED: NS 1000 ML 1,000 ML IV PRN (16:49)
[2018-10-14] MEDS ORDERED: SODIUM BICARBONATE 8.4% INJ ADULT IVP PRN (16:49)
[2018-10-14] MEDS ORDERED: NS + KCL 40 MEQ/L 1,000 ML IV PRN (16:49)
[2018-10-14] MEDS ORDERED: D50W ABBOJECT SYR IV PRN (16:49)
[2018-10-14 17:11] LABS: PHOSPHORUS 4.2 mg/dL (2.6-4.7)
[2018-10-14 17:13] LABS: HEMOGLOBIN A1C 14.4 %
[2018-10-14 18:21] VITALS: BMI 22.2
[2018-10-14] MEDS: D5 1/2 NS + KCL 20 MEQ/L 1,000 ML IV PRN (19:31)
[2018-10-14] MEDS ORDERED: NS 250 ML IV 250 ML ONE (19:57)
[2018-10-14] MEDS: MAGNESIUM SULFATE 1 GRAM/100 mL PREMIX 2 GM/200 ML BAG IV PRN ×2 (20:07→21:52)
[2018-10-14 21:13] LABS: BLOOD UREA NITROGEN 18 mg/dL (7-18); CALCIUM 7.1 mg/dL (8.5-10.1); CARBON DIOXIDE 21.9 mmol/L (21-32); CHLORIDE 99 mmol/L (98-107); COR NA(FOR HYPERGLY) 140 mmol/L (136-145); CREATININE 1.13 mg/dL (0.70-1.30); SODIUM 131 mmol/L (136-145); eGFR NON BLACK RACES > 60 (>60)
[2018-10-14] MEDS: HumuLIN R SUBCUT PRN ×2 (21:53→22:52)
[2018-10-14] MEDS ORDERED: NS + KCL 20 MEQ/L 1,000 ML ONE (23:13)
[2018-10-14] MEDS: NS 1000 ML 1,000 ML with POTASSIUM CHLORIDE INJ 20 MEQ VIAL 20 MEQ IV SCH ×2 (23:21)
[2018-10-15] MEDS: HumuLIN R SUBCUT PRN ×2 (00:05→01:01)
[2018-10-15 00:36] LABS: BLOOD UREA NITROGEN 15 mg/dL (7-18); CALCIUM 6.9 mg/dL (8.5-10.1); CARBON DIOXIDE 23.2 mmol/L (21-32); CHLORIDE 101 mmol/L (98-107); COR NA(FOR HYPERGLY) 144 mmol/L (136-145); CREATININE 1.09 mg/dL (0.70-1.30); SODIUM 135 mmol/L (136-145); eGFR NON BLACK RACES > 60 (>60)
[2018-10-15 05:32] LABS: ABG BASE EXCESS -0.4 mmol/L (-2.0-2.0); ABG HCO3 26.3 mmol/L (22-26)
[2018-10-15 06:34] LABS: BLOOD UREA NITROGEN 11 mg/dL (7-18); CALCIUM 7.2 mg/dL (8.5-10.1); CARBON DIOXIDE 22.2 mmol/L (21-32); CHLORIDE 108 mmol/L (98-107); COR NA(FOR HYPERGLY) 141 mmol/L (136-145); MAGNESIUM 1.9 mg/dL (1.7-2.9); PHOSPHORUS 3.3 mg/dL (2.6-4.7); SODIUM 141 mmol/L (136-145); eGFR NON BLACK RACES > 60 (>60)
[2018-10-15] MEDS: NS 1000 ML 1,000 ML with POTASSIUM CHLORIDE INJ 20 MEQ VIAL 20 MEQ IV SCH ×4 (07:51→16:59)
[2018-10-15] MEDS: D5 1/2 NS + KCL 20 MEQ/L 1,000 ML IV PRN (10:45)
[2018-10-15] MEDS: HumuLIN R IV PRN ×4 (20:46→23:20)
[2018-10-15] MEDS ORDERED: LANTUS SC SCH (21:00)
[2018-10-15] MEDS ORDERED: NS 1000 ML 1,000 ML ONE (21:03)
[2018-10-15] MEDS: NS 1000 ML 1,000 ML IV SCH (21:19)
[2018-10-16] MEDS: HumuLIN R IV PRN ×5 (00:11→08:14)
[2018-10-16] MEDS: D5 1/2 NS + KCL 20 MEQ/L 1,000 ML IV PRN ×2 (01:27→07:57)
[2018-10-16] MEDS: NS 1000 ML 1,000 ML IV SCH ×2 (04:10→06:33)
[2018-10-16 05:40] LABS: BASOPHILS # (AUTO) 0.1 X10^3/uL (0.0-0.1); BASOPHILS % (AUTO) 0.8 % (0.2-1.0); EOSINOPHILS # (AUTO) 0.2 x10^3/uL (0.0-0.2); HEMATOCRIT 37.5 % (42.0-54.0); HEMOGLOBIN 12.6 g/dL (13.5-18.0); LYMPHOCYTES # (AUTO) 2.8 X10^3/uL (1.3-2.9); LYMPHOCYTES % (AUTO) 34.6 % (21.0-51.0); MEAN CORPUSCULAR HEMOGLOBIN 28.1 pg (27.0-34.0); MEAN CORPUSCULAR HGB CONC 33.5 g/dL (33.0-35.0); MEAN PLATELET VOLUME 9.7 fL (7.4-11.0); MONOCYTES # (AUTO) 0.6 x10^3/uL (0.3-0.8); MONOCYTES % (AUTO) 6.9 % (0.0-13.0); NEUTROPHILS # (AUTO) 4.4 x10^3/uL (2.2-4.8); NEUTROPHILS % (AUTO) 55.7 % (42.0-75.0); PLATELET COUNT 254 X10^3/uL (150.0-450.0); RED BLOOD COUNT 4.47 X10^6/uL (4.7-6.0); RED CELL DISTRIBUTION WIDTH 15.9 % (11.6-16.5)
[2018-10-16 05:51] LABS: ALANINE AMINOTRANSFERASE 104 Units/L (12-78); ALBUMIN 2.1 g/dL (3.4-5.0); ALKALINE PHOSPHATASE 61 Units/L (46-116); ASPARTATE AMINO TRANSFERASE 111 Units/L (15-37); BLOOD UREA NITROGEN 6 mg/dL (7-18); CALCIUM 7.1 mg/dL (8.5-10.1); CARBON DIOXIDE 20.9 mmol/L (21-32); CHLORIDE 109 mmol/L (98-107); COR CA(FOR HYPOALB) 8.6 mg/dL (8.5-10.1); COR NA(FOR HYPERGLY) 142 mmol/L (136-145); CREATININE 0.65 mg/dL (0.70-1.30); MAGNESIUM 1.4 mg/dL (1.7-2.9); PHOSPHORUS 3.2 mg/dL (2.6-4.7); SODIUM 140 mmol/L (136-145); TOTAL PROTEIN 5.9 g/dL (6.4-8.2); eGFR NON BLACK RACES > 60 (>60)
[2018-10-16 06:06] LABS: ABG BASE EXCESS -3.4 mmol/L (-2.0-2.0); ABG HCO3 21.4 mmol/L (22-26)
[2018-10-16 06:07] LABS: ABG ALLEN TEST POS
[2018-10-16] MEDS: HumuLIN R SUBCUT PRN (12:34)
[2018-10-16 12:44] VITALS: BP 89/45
== END 2018-10-16 15:45 | disposition home or self-care (01) | DRG 639 ==
LOC: ER 15:40 → ICU 16:49
PROVIDERS: ADMIT Obstetrics & Gynecology Obstetrics; ATTEND Obstetrics & Gynecology Obstetrics
DX: E10.10 Type 1 diabetes mellitus with ketoacidosis without coma
CPT/HCPCS: 36415; 36600; 71020; 71046; 80048; 80053; 81003; 82009; 82150; 82550; 82553; 82803; 82947; 83036; 83690; 83735; 84100; 84484; 85025; 87040; 93005; 96365; 96367; 96374; 96375; 99285; A4222; J1815; J3475; J3480; J7030; J7050